=== PATIENT | female | born 1990 | race Caucasian/White ===

== ENCOUNTER 2018-01-12 09:54 | Inpatient (IN) ==
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
[2018-01-12] MEDS ORDERED: Isovue-370 500 ML INFUS..BTL IV ONE ×2 (11:03→11:30)
[2018-01-12] MEDS ORDERED: Azithromycin 500 MG in D5% in Water 250 ML IVPB ONE (11:07)
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
[2018-01-12] MEDS ORDERED: 0.9 % Sodium Chloride 1,000 ML IVC ONE ×2 (11:37→15:24)
[2018-01-12 11:45] LABS: Basophils % 0.1 %; Eosinophils % 0.1 %
[2018-01-12 11:47] LABS: Hematocrit 36.7 % (35.3-44.9); Hemoglobin 12.4 g/dL (11.5-15.4); Immature Granulocytes % 4.1 % (0-4); Lymphocytes # 2.1 K/mcL (0.6-4.6); Lymphocytes % 5.2 %; Mean Corpuscular HGB Conc 33.8 g/dL (31.6-35.5); Mean Corpuscular Volume 85.7 fL (83.0-100.0); Mean Platelet Volume 9.2 fL (9.4-12.4); Monocytes # 1.8 K/mcL (0.0-1.3); Monocytes % 4.4 %; Neutrophils # 34.9 K/mcL (1.6-8.9); Platelet Count 375 K/mcL (140-400); Red Blood Count 4.28 M/mcL (3.82-4.97); Red Cell Distribution Width 13.8 % (11.5-14.5); Segmented Neutrophils % 86.1 %
[2018-01-12 12:03] LABS: Toxic Granulation Present (Not Present)
[2018-01-12 12:18] LABS: Alanine Aminotransferase 5 Units/L (7-52); Albumin 2.8 g/dL (3.5-5.7); Albumin/Globulin Ratio 0.8 (1.1-2.2); Alkaline Phosphatase 140 Units/L (34-104); Aspartate Amino Transferase 9 Units/L (13-39); BUN/Creatinine Ratio 21 (6-26); Bilirubin,Direct 0.2 mg/dL (0.0-0.2); Bilirubin,Indirect 0.1 mg/dL (0.0-1.2); Bilirubin,Total 0.3 mg/dL (0.3-1.0); Blood Urea Nitrogen 14 mg/dL (6-20); Calcium 8.3 mg/dL (8.6-10.3); Carbon Dioxide 20 mEq/L (23-29); Chloride 104 mEq/L (98-107); Globulin 3.6 g/dL (2.4-3.5); Glucose 161 mg/dL (70-105); Lipase 5 Units/L (11-82); Osmolality,Calculated 286 (280-300); Potassium 2.8 mEq/L (3.5-5.1); Sodium 136 mEq/L (136-145); Total Protein 6.4 g/dL (6.4-8.9); eGFR For Non-African Americans > 60 (> 60)
[2018-01-12 12:19] LABS: Troponin I 0.36 ng/mL (< 0.04)
[2018-01-12] MEDS ORDERED: Piperacillin/Tazobactam 3.375 GM in 0.9 % Sodium Chloride Mini Bag 100 ML IVPB ONE (14:30)
[2018-01-12] MEDS ORDERED: Ipratropium/Albuterol Neb 3 ML IH PRN (15:54)
[2018-01-12] MEDS ORDERED: Potassium Chloride Elixir 20 MEQ/15 ML UDC PO ONE (15:58)
[2018-01-12] MEDS ORDERED: Naloxone 0.4 MG/ML INJ IVP PRN (16:04)
[2018-01-12] MEDS ORDERED: 0.9 % Sodium Chloride 1,000 ML IVC SCH (16:15)
[2018-01-12] MEDS: Ipratropium/Albuterol Neb 3 ML IH SCH ×3 (16:16→23:48)
[2018-01-12 16:21] LABS: Magnesium 2.2 mg/dL (1.6-2.6)
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
[2018-01-12 16:26] LABS: Appearance of Pleural Fl Hazy (Clear)
[2018-01-12 16:35] LABS: RBC,Pleural Fluid 0.002 M/mcL
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
[2018-01-12 17:07] LABS: Amylase,Pleural Fluid 12 Units/L (No Ref Range); Glucose,Pleural Fluid < 10 mg/dL (No Ref Range); LDH,Pleural Fluid 711 Units/L (No Ref Range); Total Protein,Pleural Fluid 4.1 g/dL (No Ref Range)
[2018-01-12] MEDS ORDERED: Aspirin Enteric Coated 325 MG Tablet PO ONE (17:34)
[2018-01-12] MEDS ORDERED: Ringers Solution, Lactated 1,000 ML IVC SCH (17:45)
[2018-01-12] MEDS: MethylPREDNISolone 40 MG/ML VIAL IVP SCH ×2 (17:45→23:32)
[2018-01-12] MEDS: *HR* HYDROcodone/Acet 5/325 mg TABLET PO PRN (17:55)
[2018-01-12] MEDS: Ringers Solution, Lactated 1,000 ML IVC SCH (18:58)
--- NOTE | 2018-01-12 19:24 | Event Note ---
Date of Encounter: 01/12/18 Time of Encounter: 18:30 Contacted by phone at 1830 of trop elevation to 5 from 0.3 on admit. Discussed with pt RN and pt asx. VS unchanged from previous. Stat ekg obtained. Hospitalist Admitter saw pt and confirmed no active cp, reviewed EKG. I too have reviewed EKG and she is in NSR with no ST elevation however new TWI in leads I, II and aVL. Consult to cardiology immediately placed and case discussed via phone in detail, including prior labs, ekg and presentation, recent trauma and CTA results. EKG imaging sent to cards for review. Recommend heparin gtt if ok with pulm given chest tube, if uds negative for cocaine start low dose bb tonight. Highly likely type II NSTEMI. Discussed with pulm and ok for heparing gtt with RN placing orders. UDS being sent currently and RN to notify night hospitalist of result so that low dose BB can be started if BP permits at that time. Change routine echo to stat and RN will contact echo to make them aware. Cont serial trops and ekgs. Despite new change in trop, she remains hemodynamically stable to stay on 2N at this time. Low threshold for higher level of care if change in clinical picture.
[2018-01-12] MEDS ORDERED: *HR* Heparin 5,000 UNIT/ML VIAL IVP ONE (19:26)
[2018-01-12] MEDS ORDERED: *HR* Heparin 5,000 UNIT/ML VIAL IVP PRN (19:26)
[2018-01-12 19:30] LABS: Bilirubin,Urine Negative (Negative); Blood,Urine Negative (Negative); Clarity,Urine Clear (Clear); Color,Urine Yellow (Yellow); Glucose,Urine (UA) Normal (Normal); Ketones,Urine Negative (Negative); Leukocyte Esterase,Urine Negative (Negative); Nitrite,Urine Negative (Negative); PH,Urine 6.5 pH Units (5.0-8.0); Protein,Urine Trace mg/dL (Neg-Trace); Specific Gravity,Urine 1.012 (1.010-1.025); Urobilinogen,Urine Normal (Normal)
[2018-01-12] MEDS ORDERED: Heparin 25,000 UNIT/500 ML D5W 25,000 UNIT/500 ML BAG IVC SCH (19:30)
[2018-01-12 19:33] LABS: Bacteria,Urine None Seen per hpf (None-Few); Hyaline Casts,Urine None Seen per lpf (None-Few); RBC,Urine 0-3 per hpf (0-3); Squamous Epithelial Cell,Urine Many per lpf (None-Few); WBC,Urine 0-3 per hpf (0-3)
[2018-01-12 19:40] LABS: Amphetamine Screen,Urine Negative ng/mL (Cutoff=1000); Barbiturate Screen,Urine Negative ng/mL (Cutoff=200); Benzodiazepines Screen,Urine Positive ng/mL (Cutoff=200); Cannabinoid Screen,Urine Negative ng/mL (Cutoff = 50); Cocaine Screen,Urine Negative ng/mL (Cutoff= 300); Opiate Screen,Urine Negative ng/mL (Cutoff=300); Phencyclidine Screen,Urine Negative ng/mL (Cutoff=25)
[2018-01-12 20:00] LABS: Hematocrit 31.3 % (35.3-44.9); Hemoglobin 10.6 g/dL (11.5-15.4); Mean Corpuscular HGB Conc 33.9 g/dL (31.6-35.5); Mean Corpuscular Hemoglobin 28.3 pg (28.0-33.3); Mean Corpuscular Volume 83.7 fL (83.0-100.0); Mean Platelet Volume 9.2 fL (9.4-12.4); Platelet Count 228 K/mcL (140-400); Red Blood Count 3.74 M/mcL (3.82-4.97); Red Cell Distribution Width 13.8 % (11.5-14.5)
[2018-01-12 20:04] LABS: Heparin anti-factor XA UFH 0.01 IU/mL (0.30-0.70); INR 1.1; Prothrombin Time 11.9 Seconds (9.4-12.1)
[2018-01-12] MEDS: Acetaminophen 325 MG TABLET PO PRN (20:45)
[2018-01-12] MEDS: *HR* OxyCODONE Immed Rel 5 MG TABLET PO PRN (21:44)
[2018-01-12 23:01] LABS: Adenovirus Not Detected (Not Detect); Bordetella Pertussis Not Detected (Not Detect); Chlamydophila pneumoniae Not Detected (Not Detect); Coronavirus 229E Not Detected (Not Detect); Coronavirus HKU1 Not Detected (Not Detect); Coronavirus NL63 Not Detected (Not Detect); Coronavirus OC43 Not Detected (Not Detect); Human Metapneumovirus Not Detected (Not Detect); Human Rhinovirus/Enterovirus Not Detected (Not Detect); Influenza A Subtype 2009 H1 Not Detected (Not Detect); Influenza A Untypeable Not Detected (Not Detect); Influenza B Not Detected (Not Detect); Mycoplasma pneumoniae Not Detected (Not Detect); Parainfluenza Virus 1 Not Detected (Not Detect); Parainfluenza Virus 2 Not Detected (Not Detect); Parainfluenza Virus 3 Not Detected (Not Detect); Parainfluenza Virus 4 Not Detected (Not Detect); Respiratory Syncytial Virus Not Detected (Not Detect)
[2018-01-12 23:26] LABS: Potassium 3.3 mEq/L (3.5-5.1)
[2018-01-12 23:30] LABS: Troponin I 0.11 ng/mL (< 0.04)
[2018-01-12] MEDS: Piperacillin/Tazobactam 3.375 GM in 0.9 % Sodium Chloride Mini Bag 100 ML IVPB SCH (23:33)
--- NOTE | 2018-01-13 00:27 | Event Note ---
Date of Encounter: 01/13/18 Time of Encounter: 00:25 I was asked by Dr. Reyez to see patient and assess briefly. Patient doing OK and denies any chest pain other than chest tube site. She has underlying cough and some wheezing. Overall, she states she feels much better since chest tube insertion. No sign of bleeding at this time. Last troponin is 0.11. Vital signs remain stable presently.
[2018-01-13] MEDS: Ringers Solution, Lactated 1,000 ML IVC SCH ×2 (03:10→11:40)
[2018-01-13] MEDS: *HR* HYDROcodone/Acet 5/325 mg TABLET PO PRN ×3 (03:22→21:34)
[2018-01-13 03:23] LABS: Hematocrit 28.8 % (35.3-44.9); Hemoglobin 9.8 g/dL (11.5-15.4); Mean Corpuscular Hemoglobin 29.1 pg (28.0-33.3); Mean Corpuscular Volume 85.5 fL (83.0-100.0); Mean Platelet Volume 9.5 fL (9.4-12.4); Platelet Count 301 K/mcL (140-400); Red Blood Count 3.37 M/mcL (3.82-4.97); Red Cell Distribution Width 13.9 % (11.5-14.5)
[2018-01-13 03:43] LABS: Alanine Aminotransferase 7 Units/L (7-52); Albumin 2.5 g/dL (3.5-5.7); Albumin/Globulin Ratio 0.8 (1.1-2.2); Alkaline Phosphatase 130 Units/L (34-104); Aspartate Amino Transferase 10 Units/L (13-39); BUN/Creatinine Ratio 19 (6-26); Bilirubin,Total 0.2 mg/dL (0.3-1.0); Blood Urea Nitrogen 12 mg/dL (6-20); Carbon Dioxide 20 mEq/L (23-29); Chloride 109 mEq/L (98-107); Chol/HDL Ratio 8.2 (0-4.9); Cholesterol 82 mg/dL (< 200); Globulin 3.2 g/dL (2.4-3.5); Glucose 243 mg/dL (70-105); HDL Cholesterol 10 mg/dL (40-59); LDL Cholesterol,Calculated 51 mg/dL (0-99); Magnesium 2.1 mg/dL (1.6-2.6); Osmolality,Calculated 294 (280-300); Phosphorous 3.2 mg/dL (2.7-4.5); Potassium 3.2 mEq/L (3.5-5.1); Sodium 138 mEq/L (136-145); Total Protein 5.7 g/dL (6.4-8.9); Triglycerides 104 mg/dL (< 150); eGFR For Non-African Americans > 60 (> 60)
[2018-01-13 03:58] LABS: Lymphocytes # 1.3 K/mcL (0.6-4.6); Neutrophils # 20.2 K/mcL (1.6-8.9); Platelet Estimate Normal (Normal)
[2018-01-13] MEDS: Ipratropium/Albuterol Neb 3 ML IH SCH ×6 (04:34→23:54)
[2018-01-13] MEDS: *HR* OxyCODONE Immed Rel 5 MG TABLET PO PRN ×2 (06:23→15:23)
--- NOTE | 2018-01-13 06:43 | Pulmonology Progress Note ---
Date of Encounter: 01/13/18 Time of Encounter: 06:43 Assessment and Plan (1) Empyema Current Visit: Yes Status: Acute Patient has laboratory features consistent with empyema. Has to is drained about 1300 mL of purulent material overnight. Since shift change last night about 120 mL's, out I flushed the chest tube again today with normal saline. Based upon radiographs the size of the effusion has decreased but not completely resolved would keep the chest tube to wall suction today Pneumothorax seen today on chest imaging is consistent with pneumothorax ex vacuo and is related to evacuation of the pleural space pending lung reexpansion unless evidence of trapped lung physiology which may require surgical decortication I suspect she would benefit from intrapleural TPA administration although not an absolute contraindication with systemic anticoagulation clearly the risk of bleeding would be much less once heparin was turned off if possible I will delay administration of this for this reason today Continue broad-spectrum antimicrobials pending microbiological culture sensitivity and specificities including anaerobic coverage (2) NSTEMI (non-ST elevated myocardial infarction) Current Visit: Yes Status: Acute I suspect this is demand ischemia I am concerned about the possibility of infectious process however either endocarditis or infection of the pericardium given proximity of empyema echocardiogram has been obtained and final results are pending cardiology's been consulted and I will follow-up with him about the need for heparin or if there is any evidence of infectious process. (3) Tobacco abuse Current Visit: Yes Status: Acute Tobacco cessation counseling given Continue bronchodilators I am ambivalent about the use of systemic corticosteroids in this patient (4) Severe sepsis Current Visit: Yes Status: Acute Unfortunately it appears that blood cultures were not obtained in the emergency department from what I can gather I have asked the nursing staff to obtain these today clearly he she is already received antimicrobials which will decrease the yield however she has a persistent bacteremia that would still be helpful Sputum and urine culture are pending at this time the Gram stain from the pleural fluid without evidence of bacteria Tachycardia has resolved lactate is normalized She is taking by mouth diet now and I suspect that the maintenance fluid can be discontinued today Pulmonary will continue to follow Subjective Principal diagnosis: Empyema Interval history: Dulce Maria says that she is feeling better today chest discomfort has improved markedly and she is able to take a deeper breath now without pain. She has remained afebrile overnight and tachycardia has resolved blood pressure is been stable troponin noted to go from one to 5 and she had an echocardiogram performed earlier today. She was started on heparin for concern of an STEMI Objective PUL Vital signs: Last Vital Signs Temp 98 F 01/13/18 04:27 Pulse 83 01/13/18 04:27 Resp 20 01/13/18 04:34 BP 105/61 01/13/18 04:27 Pulse Ox 94 01/13/18 04:34 General appearance: no acute distress Eyes: nonicteric ENT: other (Poor dentition) Effort: mildly labored Auscultation: right: diminished breath sounds, bilateral: wheezes (Faint inspiratory wheezes), rhonchi Cardiovascular: regular rate and rhythm Gastrointestinal: normoactive bowel sounds Integumentary: normal Extremities: no cyanosis, no edema, no clubbing normal mental status, non-focal exam, pupils equal and round mood appropriate Results - Laboratory Findings CBC and BMP: 01/13/18 03:10 01/13/18 03:10 PT/INR, D-dimer PT 11.9 Seconds (9.4-12.1) 01/12/18 19:43 Abnormal lab findings: Abnormal lab results WBC 21.5 K/mcL (4.3-11.1) H 01/13/18 03:10 RBC 3.37 M/mcL (3.82-4.97) L 01/13/18 03:10 Hgb 9.8 g/dL (11.5-15.4) L 01/13/18 03:10 Hct 28.8 % (35.3-44.9) L 01/13/18 03:10 Immature Gran % 4.1 % (0-4) H 01/12/18 11:33 Neutrophils # 20.2 K/mcL (1.6-8.9) H 01/13/18 03:10 Monocytes # 1.8 K/mcL (0.0-1.3) H 01/12/18 11:33 Toxic Granulation Present (Not Present) A 01/12/18 11:33 Heparin Anti-Xa, Unfract 0.05 IU/mL (0.30-0.70) L 01/13/18 03:10 Potassium 3.2 mEq/L (3.5-5.1) L 01/13/18 03:10 Chloride 109 mEq/L (98-107) H 01/13/18 03:10 Carbon Dioxide 20 mEq/L (23-29) L 01/13/18 03:10 Glucose 243 mg/dL (70-105) H 01/13/18 03:10 Calcium 8.0 mg/dL (8.6-10.3) L 01/13/18 03:10 Total Bilirubin 0.2 mg/dL (0.3-1.0) L 01/13/18 03:10 AST 10 Units/L (13-39) L 01/13/18 03:10 Alkaline Phosphatase 130 Units/L (34-104) H 01/13/18 03:10 B-Natriuretic Peptide 462 pg/mL (Less than 100) H 01/12/18 16:09 Serum Total Protein 5.7 g/dL (6.4-8.9) L 01/13/18 03:10 Albumin 2.5 g/dL (3.5-5.7) L 01/13/18 03:10 Albumin/Globulin Ratio 0.8 (1.1-2.2) L 01/13/18 03:10 HDL Cholesterol 10 mg/dL (40-59) L 01/13/18 03:10 Cholesterol/HDL Ratio 8.2 (0-4.9) H 01/13/18 03:10 Lipase 5 Units/L (11-82) L 01/12/18 11:33 Ur Squamous Epith Cells Many per lpf (None-Few) H 01/12/18 19:10 Pleural Appearance Hazy (Clear) A 01/12/18 15:16 Pleural Tot Nuc Cell 8698 TNC/mcL (0-1000) H 01/12/18 15:16 U Benzodiazepines Scrn Positive ng/mL (Neajco=502) H 01/12/18 19:10 - Diagnostic Findings Chest x-ray: report reviewed, image reviewed - Clinical Findings Intake & Output: Intake & Output 01/12/18 01/12/18 01/13/18 15:59 23:59 07:59 Intake Total 1320 / 1320 1457 / 1457 Output Total 1570 / 1570 500 / 500 Balance -250 / -250 957 / 957 Weight 53.7 kg 54.4 kg Consult Discharge Plan - Plan Referrals: NONE,PCP [Primary Care Provider] -
--- NOTE | 2018-01-13 07:55 | Internal Med Progress Note ---
Hospitalist Progress Note - Encounter Date of Encounter: 01/13/18 Time of Encounter: 09:15 - Subjective Interval History: awake, family at bed side, appears much improved. resting on room air and denies sob. cont weak deep cough, can't bring up sputum. deneis any chest pain, palpitations, presyncope. pain in right side of chest with chest tube in place but overall pain in right chest wall improved. - Exam Vitals: Temp Pulse Resp BP Pulse Ox 97.8 F 78 18 105/65 96 01/13/18 07:18 01/13/18 07:18 01/13/18 07:18 01/13/18 07:18 01/13/18 07:18 Exam: General: awake, alert, appears stated age HEENT:EOM intact, pupils equal, round, no conjunctival pallor, moist mucus membranes, poor dentition Neck: supple, trachea midline Cardiovascular:regular rate and rhythm, normal S1 & S2, no rubs, murmurs or gallops appreciated. No JVD. radial pulses 2+ and regular, no lower extremity edema Lungs:no resp distress, normal work of breathing on room air, no wheezing + rhonchi, diminished right breath sounds and worst in base Abdomen:Soft, non-tender, non-distended, + bowel sounds Neurological: AAOx3 Skin:Normal color, no rash, no pallor, no jaundice, - Assessment and Plan (1) Severe sepsis Current Visit: Yes Assessment and Plan: as evidenced by HR 116, RR 26, BP drop from 132/65 to 110/67 , WBC 40, Lactic acid 3 and suspected pneumonia -s/p 2L boluses in ED per sepsis procotol, trended lactate and down to 1.8 now -CXR new moderate to large plueral and parenchymal opacity lower 2/3 right lung -CTA Chest: 1.There is a large multiloculated right pleural effusion which results in significant lung atelectasis and mediastinal/cardiac shift to the left. This could represent posttraumatic loculated effusion. There is no internal gas foci though empyema cannot be excluded. 2.Extensive right lung consolidation with right lower lobe bronchial opacification and hypodense changes which suggest possible aspiration. There are multifocal basal circumscribed fluid collections which could represent developing pulmonary abscess. 3. Trace simple left pleural effusion with mild patchy perihilar consolidation. -CT A/P without acute findings / signs of infection, ROS neg for gi symptoms -Left otitis media on exam -check UA -no skin wounds that appear infected -cont ivfs -bl cxs pending -thoracentesis fluid studies pending: pleural fluid gram stain many wbcs, culture pending -vanc + zosyn -01/13 - lactate--down to 2, -leukocytosis down to 20s, afebrile, normal HR, BP low 100s/50-60s (2) Acute respiratory failure with hypoxia Current Visit: Yes Status: Acute Assessment and Plan: 2/2 large right pleural effusions and Pneumonia, suspicious for aspiration pna, Empyema, organism uk at this time -supplemental O2, wean as able -Emergent IR thoracentesis and chest tube placement given CT chest findings with mediastinal shift in ED -CTA did not suggest traumatic effusion / Chest tube drainage is NOT bloody -treatment of pneumonia/empyema as below -pulm following (3) Pleural effusion Current Visit: Yes Status: Acute Assessment and Plan: treatment as above -fluid studies as above -Chest tube management as per pulm (4) Pneumonia Current Visit: Yes Status: Acute Assessment and Plan: right loculated pleural effusions and Pneumonia, Empyema, organism uk at this time -fluid studies pending -vanc + zosyn to cover aspiration -standing and prn nebs -IV steroids -sputum cx pending - legionella, strep ag pending -viral resp panel neg -pulm is following -01/13 chest tube with 1300 cc purulent fluid overnight, cont chest tube as per pulm, CXR today with pneumothorax c/w pneumothorax ex vacuo , will cont to monitor for trapped lung and any need for surgical intervention -Chest tube would benefit from tpa administration but currently heparin gtt running (awaiting cards recs re ability to dc hep gtt) (5) Elevated troponin Current Visit: Yes Status: Acute Assessment and Plan: Suspect Type II OH in setting of Severe Sepsis, Heart score 3, asx, working to rule out endocarditis or pericardial infection given empyema -trop 0.36 then peak at 5.5 - sinus tachy in ED and EKG without acute ischemic changes , 01/12 repeat EKG with new twi I, II avl -cards consulted-hep gtt started (trop improvement prior to achieving therapeutic range) -cont asa, lipid panel with low HDL otherwise wnl -tele -tsh wnl, a1c pending -bnp 462 -stat echo: LVEF 65%. Normal left ventricular diastolic function. Normal right ventricular structure and function. Mildly dilated left atrium. No significant valvular abnormality No evidence of pulmonary hypertension. -UDS neg- as per cards recs if neg cocaine start low dose BB but BPs have not yet permitted initiation -fu cards recs re further work up, treatment, hep gtt continuation (6) History of recent trauma Current Visit: Yes Status: Acute Assessment and Plan: CT chest and A/P - no pneumothorax, no evidence of hemorrhage, liver laceration or other signs of traumatic injury (7) Left acute otitis media Current Visit: Yes Status: Acute Assessment and Plan: abx as above (8) Hypoalbuminemia Current Visit: Yes Status: Acute Assessment and Plan: nutrition consulted (9) Hypokalemia Current Visit: Yes Status: Acute Assessment and Plan: K+ 2.8 in eD -cont oral replete -mag at goal -tele -cont to monitor lytes (10) Hepatitis C virus Current Visit: Yes Status: Chronic Assessment and Plan: on chart review + Hep c testing in past HIV neg in past (11) Depression Current Visit: No Status: Chronic Assessment and Plan: stable previously on medication, not on any now DVT Prophylaxis: hep gtt - Time Spent with Patient Total time spent is greater than 50% in coordination of care (as documented) at patient's floor/unit and/or counseling patient: 25 - 35 minutes Plan of Care Discussed with: patient Internal Medicine: Result - Labs CBC & Chem 7: 01/13/18 03:10 01/13/18 03:10 Labs: Short CBC 01/12/18 01/13/18 Range/Units 19:43 03:10 WBC 32.6 H* 21.5 H (4.3-11.1) K/mcL Hgb 10.6 L D 9.8 L (11.5-15.4) g/dL Hct 31.3 L 28.8 L (35.3-44.9) % Plt Count 228 301 (140-400) K/mcL Neutrophils # 20.2 H (1.6-8.9) K/mcL BMP 01/12/18 01/13/18 22:46 03:10 Sodium 138 Potassium 3.3 L 3.2 L Chloride 109 H Carbon Dioxide 20 L BUN 12 Creatinine 0.64 Glucose 243 H Calcium 8.0 L Cardiac Enzymes 01/12/18 01/12/18 01/13/18 Range/Units 17:33 22:46 03:10 Troponin I 5.50 H* 0.11 H* 0.03 (< 0.04) ng/mL Liver Function 01/13/18 Range/Units 03:10 Total Bilirubin 0.2 L (0.3-1.0) mg/dL AST 10 L (13-39) Units/L ALT 7 (7-52) Units/L Alkaline Phosphatase 130 H (34-104) Units/L Albumin 2.5 L (3.5-5.7) g/dL Urine 01/12/18 Range/Units 19:10 Urine Color Yellow (Yellow) Urine Clarity Clear (Clear) Urine pH 6.5 (5.0-8.0) pH Units Ur Specific Jelm 1.012 (1.010-1.025) Urine Protein Trace (Neg-Trace) mg/dL Urine Glucose (UA) Normal (Normal) mg/dL - ABG Interpretation ABG results: PT/INR, D-dimer PT 11.9 Seconds (9.4-12.1) 01/12/18 19:43 Consult Discharge Plan - Plan Referrals: NONE,PCP [Primary Care Provider] - (4) Pneumonia Qualifiers: Pneumonia type: due to unspecified organism Laterality: right Lung location : lower lobe of lung Qualified Code(s): J18.1 - Lobar pneumonia, unspecified organism (10) Hepatitis C virus Qualifiers: Viral hepatitis chronicity: unspecified Hepatic coma status: without hepatic coma Qualified Code(s): B19.20 - Unspecified viral hepatitis C without hepatic coma (11) Depression Qualifiers: Depression Type: unspecified Qualified Code(s): F32.9 - Major depressive disorder, single episode, unspecified
[2018-01-13] MEDS ORDERED: Potassium Chloride Elixir 20 MEQ/15 ML UDC PO ONE (07:59)
[2018-01-13] MEDS ORDERED: Aspirin Enteric Coated 81 MG Tablet PO SCH (09:00)
[2018-01-13] MEDS: MethylPREDNISolone 40 MG/ML VIAL IVP SCH ×2 (09:54→17:01)
[2018-01-13] MEDS: Piperacillin/Tazobactam 3.375 GM in 0.9 % Sodium Chloride Mini Bag 100 ML IVPB SCH ×2 (09:54→17:01)
[2018-01-13] MEDS: *HR* Heparin 5,000 UNIT/ML VIAL IVP PRN ×2 (11:39→17:04)
[2018-01-13] MEDS ORDERED: Ringers Solution, Lactated 1,000 ML IVC SCH (12:30)
--- NOTE | 2018-01-13 17:43 | Cardiology Consult Note ---
Date of Encounter: 01/13/18 Time of Encounter: 13:00 Assessment and Plan (1) Elevated troponin Current Visit: Yes Status: Acute Patient symptoms are more typical for empyema much less cardiac ischemia especially given her young age and gender. TnI trended as follows: 0.36 -> 5.5 -> 0.11 -> 0.03. I suspect the one blood sample with Troponin of 5.5 was an outlier. Echocardiogram shows normal ejection fraction with no wall motion abnormality. Urine toxicology was negative for cocaine. Please discontinue intravenous heparin. Continue antibiotics and follow blood cultures. Discussion w patient/family: The assessment and plan as outlined above was discussed with the patient and/or family members who expressed understanding and agreement. All questions were answered. Thank you for involving us in the care of your patient. Please call with any questions. History of Present Illness Consult date: 01/13/18 Chief complaint: Shortness of breath History of present illness: Ms. Darden is a 27 year old female with past medical history of IV drug abuse, tobacco abuse who presented with severe chest pain and shortness of breath I was found to have large empyema which was drained via chest tube yesterday night. However, she was found to have elevated troponin and so cardiology was consulted. Since receiving chest tube, patient reports that she feels much better. She denies chest pain at this time. Exercise tolerance is excellent prior current illness. No history suggestive of congenital heart disease or episode of infective endocarditis. No family history of premature coronary artery disease. Past Med Surg Social Fam HX - Past Medical History Medical history: no medical history Psychiatric history: anxiety, depression - Past Surgical History Surgical History: no surgical history, non-contributory Additional surgical history: tubes in ears - Social History Smoking Status: Current every day smoker Smokeless Tobacco Status: No Alcohol use: none Drug use: other - Family History Mother Hx Family Cardiac Disorders: Yes Hx Family Cancer: Yes Hx Family Endocrine Disorder: Yes Medications and Allergies Ibuprofen [Motrin Ib] 800 mg PO Q4-6H PRN 01/12/18 [History] 3 Allergy/AdvReac Type Severity Reaction Status Date / Time No Known Allergies Allergy Verified 01/12/18 11:58 All Systems Review: The remainder of the systems were reviewed and are negative - Constitutional Constitutional: no anorexia - EENT Eyes: no blurred vision Nose, mouth and throat: no bleeding gums - Cardiovascular Cardiovascular: as per HPI - Respiratory Respiratory: cough, dyspnea - Gastrointestinal Gastrointestinal: no abdominal pain - Genitourinary Genitourinary: no hematuria - Musculoskeletal Musculoskeletal: no abnormal gait - Integumentary Integumentary: no erythema - Neurological Neurological: no abnormal speech - Psychiatric Psychiatric: no anxiety Physical Examination Vital Signs, Last 4 Hours Temp Pulse Resp BP Pulse Ox 01/13/18 16:16 16 97 01/13/18 15:15 98.3 F 84 19 122/68 96 General: Conversant, No Apparent Distress HEENT: Atraumatic Neck: No JVD, Normal carotid pulses Cardiac: Reg Rate and Rhythm, Normal S1 and S2, No Murmur Lungs: Other (Diminished breath sounds with coarse crackles.) Neuro: Alert and responsive, No focal deficits noted Abdomen: Soft, Non-Tender Musculoskeletal: Other (Right Chest tube in situ draining purulent fluid.) Extremities: No Clubbing, No Edema Results 01/13/18 03:10 01/13/18 16:15 Lab Results 01/12/18 01/12/18 01/12/18 17:33 19:43 19:43 WBC 32.6 H* Hgb 10.6 L D Hct 31.3 L Plt Count 228 INR 1.1 Sodium Potassium Chloride Carbon Dioxide BUN Creatinine Glucose Calcium Magnesium Total Bilirubin AST ALT Alkaline Phosphatase Troponin I 5.50 H* TSH 01/12/18 01/13/18 01/13/18 22:46 03:10 03:10 WBC 21.5 H Hgb 9.8 L Hct 28.8 L Plt Count 301 INR Sodium 138 Potassium 3.3 L 3.2 L Chloride 109 H Carbon Dioxide 20 L BUN 12 Creatinine 0.64 Glucose 243 H Calcium 8.0 L Magnesium 2.1 Total Bilirubin 0.2 L AST 10 L ALT 7 Alkaline Phosphatase 130 H Troponin I 0.11 H* TSH 01/13/18 01/13/18 01/13/18 03:10 03:10 16:15 WBC Hgb Hct Plt Count INR Sodium Potassium 3.0 L Chloride Carbon Dioxide BUN Creatinine Glucose Calcium Magnesium Total Bilirubin AST ALT Alkaline Phosphatase Troponin I 0.03 TSH 0.695 Consult Discharge Plan - Plan Referrals: NONE,PCP [Primary Care Provider] -
[2018-01-13] MEDS: *HR* Heparin 5,000 UNIT/ML VIAL SQ SCH (21:09)
[2018-01-14] MEDS: Piperacillin/Tazobactam 3.375 GM in 0.9 % Sodium Chloride Mini Bag 100 ML IVPB SCH ×3 (00:13→17:39)
[2018-01-14] MEDS: MethylPREDNISolone 40 MG/ML VIAL IVP SCH ×3 (00:13→17:36)
[2018-01-14] MEDS: Melatonin 3 MG TABLET PO PRN (00:15)
[2018-01-14] MEDS: *HR* OxyCODONE Immed Rel 5 MG TABLET PO PRN ×2 (03:23→15:33)
[2018-01-14] MEDS: Ipratropium/Albuterol Neb 3 ML IH SCH ×6 (03:39→23:43)
[2018-01-14 04:02] LABS: Hematocrit 28.8 % (35.3-44.9); Hemoglobin 9.6 g/dL (11.5-15.4); Lymphocytes # 1.2 K/mcL (0.6-4.6); Mean Corpuscular HGB Conc 33.3 g/dL (31.6-35.5); Mean Corpuscular Hemoglobin 28.1 pg (28.0-33.3); Mean Corpuscular Volume 84.2 fL (83.0-100.0); Platelet Count 362 K/mcL (140-400); Red Blood Count 3.42 M/mcL (3.82-4.97); Red Cell Distribution Width 14.2 % (11.5-14.5)
[2018-01-14 04:19] LABS: BUN/Creatinine Ratio 20 (6-26); Blood Urea Nitrogen 13 mg/dL (6-20); Calcium 8.5 mg/dL (8.6-10.3); Carbon Dioxide 20 mEq/L (23-29); Chloride 109 mEq/L (98-107); Glucose 115 mg/dL (70-105); Magnesium 1.8 mg/dL (1.6-2.6); Osmolality,Calculated 293 (280-300); Potassium 3.6 mEq/L (3.5-5.1); Sodium 141 mEq/L (136-145); eGFR For Non-African Americans > 60 (> 60)
[2018-01-14 04:28] LABS: Monocytes # 0.6 K/mcL (0.0-1.3); Neutrophils # 27.7 K/mcL (1.6-8.9)
[2018-01-14 04:29] LABS: Platelet Estimate Normal (Normal)
[2018-01-14] MEDS: *HR* Heparin 5,000 UNIT/ML VIAL SQ SCH ×3 (05:47→22:23)
--- NOTE | 2018-01-14 06:36 | Pulmonology Progress Note ---
Date of Encounter: 01/14/18 Time of Encounter: 06:36 Assessment and Plan (1) Empyema Current Visit: Yes Status: Acute Patient has laboratory features consistent with empyema. In general terms it appears that the majority of the pleural space has been drained of purulent material there is a small residual pleural effusion that left and would keep chest tube in place and to suction over the next 24 hours I do not think that based upon the CT scan that intrapleural TPA will be necessary (2) Multifocal pneumonia Current Visit: Yes Status: Acute CT scan today is notable for worsening multifocal pneumonia especially on the left side. It is unclear to me why she she would have radiographic progression of infiltrate unless current antimicrobial therapy is insufficient one possibility is that her vancomycin level may have been under doses her trough was less than 8. This was re-dose per pharmacy and goal trough for her should be closer to 15-20 based upon her renal function I will defer to pharmacy for further dosing. I have added azithromycin for some atypical coverage although not suggested by her respiratory infection panel are negative Legionella urine antigen. Additionally will send patient for induced sputum today 3 would consider bronchoscopy over patient has eaten late this morning which would make this difficult to achieve today. Please keep patient nothing by mouth at midnight and tomorrow if worsening white count or febrile overnight she would need to proceed with bronchoscopy this can be determined by the twist tester on service tomorrow. Continue Zosyn as well (3) NSTEMI (non-ST elevated myocardial infarction) Current Visit: Yes Status: Acute Cardiology has evaluated the patient and felt this is demand ischemia heparin has been turned off (4) Tobacco abuse Current Visit: Yes Status: Acute Tobacco cessation counseling given Start nicotine patch at 7 mg is having intense cravings (has become sick at higher doses). Subjective Principal diagnosis: Empyema Interval history: Over last 24 hours patient has remained afebrile. She says that she is continuing to feel more comfortable. She does report an creased cough although generally this is nonproductive and she denies any hemoptysis. Chest tube with minimal output does continue to drain some purulent material. She has not required supplemental oxygen Objective PUL Vital signs: Last Vital Signs Temp 98.2 F 01/14/18 03:08 Pulse 88 01/14/18 03:08 Resp 18 01/14/18 03:08 BP 114/79 01/14/18 03:08 Pulse Ox 94 01/14/18 03:08 General appearance: no acute distress Eyes: nonicteric ENT: oropharynx moist Neck: supple Auscultation: bilateral: rhonchi Cardiovascular: regular rate and rhythm Gastrointestinal: normoactive bowel sounds, soft, non-tender Integumentary: normal Extremities: no cyanosis, no edema, no clubbing Musculoskeletal: no deformities normal mental status, non-focal exam mood appropriate Results - Laboratory Findings CBC and BMP: 01/14/18 03:50 01/14/18 03:50 PT/INR, D-dimer PT 11.9 Seconds (9.4-12.1) 01/12/18 19:43 Abnormal lab findings: Abnormal lab results WBC 30.1 K/mcL (4.3-11.1) H* 01/14/18 03:50 RBC 3.42 M/mcL (3.82-4.97) L 01/14/18 03:50 Hgb 9.6 g/dL (11.5-15.4) L 01/14/18 03:50 Hct 28.8 % (35.3-44.9) L 01/14/18 03:50 Immature Gran % 4.1 % (0-4) H 01/12/18 11:33 Band Neutrophils % 10.0 % (0-4) H 01/14/18 03:50 Metamyelocytes % 2.0 % (0) H 01/14/18 03:50 Neutrophils # 27.7 K/mcL (1.6-8.9) H 01/14/18 03:50 Toxic Granulation Present (Not Present) A 01/12/18 11:33 Heparin Anti-Xa, Unfract 0.15 IU/mL (0.30-0.70) L 01/13/18 16:15 Chloride 109 mEq/L (98-107) H 01/14/18 03:50 Carbon Dioxide 20 mEq/L (23-29) L 01/14/18 03:50 Glucose 115 mg/dL (70-105) H 01/14/18 03:50 Calcium 8.5 mg/dL (8.6-10.3) L 01/14/18 03:50 Total Bilirubin 0.2 mg/dL (0.3-1.0) L 01/13/18 03:10 AST 10 Units/L (13-39) L 01/13/18 03:10 Alkaline Phosphatase 130 Units/L (34-104) H 01/13/18 03:10 B-Natriuretic Peptide 462 pg/mL (Less than 100) H 01/12/18 16:09 Serum Total Protein 5.7 g/dL (6.4-8.9) L 01/13/18 03:10 Albumin 2.5 g/dL (3.5-5.7) L 01/13/18 03:10 Albumin/Globulin Ratio 0.8 (1.1-2.2) L 01/13/18 03:10 HDL Cholesterol 10 mg/dL (40-59) L 01/13/18 03:10 Cholesterol/HDL Ratio 8.2 (0-4.9) H 01/13/18 03:10 Lipase 5 Units/L (11-82) L 01/12/18 11:33 Ur Squamous Epith Cells Many per lpf (None-Few) H 01/12/18 19:10 Pleural Appearance Hazy (Clear) A 01/12/18 15:16 Pleural Tot Nuc Cell 8698 TNC/mcL (0-1000) H 01/12/18 15:16 U Benzodiazepines Scrn Positive ng/mL (Akenpb=699) H 01/12/18 19:10 - Microbiology Findings Microbiology Findings: Microbiology, Last 48 Hours 01/13/18 21:35 Sputum Culture - Preliminary Sputum 01/12/18 19:01 Legionella Antigen - Final Urine,Clean Catch Streptococcus pneumoniae Antigen (M - Final 01/13/18 07:07 Blood Culture - Preliminary Peripheral Venipuncture Culture is incubating and being continuously monitored for growth. Final report to follow. 01/13/18 07:13 Blood Culture - Preliminary Peripheral Venipuncture Culture is incubating and being continuously monitored for growth. Final report to follow. - Diagnostic Findings Chest x-ray: report reviewed, image reviewed CT scan - chest: report reviewed, image reviewed - Clinical Findings Intake & Output: Intake & Output 01/13/18 01/13/18 01/14/18 15:59 23:59 07:59 Intake Total 1519 / 1519 748 / 748 500 / 500 Output Total 990 / 990 990 / 990 0 / 0 Balance 529 / 529 -242 / -242 500 / 500 Weight 54.7 kg Consult Discharge Plan - Plan Referrals: NONE,PCP [Primary Care Provider] -
[2018-01-14] MEDS ORDERED: Alteplase (Cathflo) 10 MG in 0.9 % Sodium Chloride 30 ML IX ONE (07:28)
[2018-01-14] MEDS ORDERED: Magnesium Oxide 400 MG TABLET PO ONE (07:42)
--- NOTE | 2018-01-14 07:46 | Internal Med Progress Note ---
Hospitalist Progress Note - Encounter Date of Encounter: 01/14/18 Time of Encounter: 09:40 - Subjective Interval History: awake, fatigued but overall somewhat improved. sob is improving. continued coughing, difficulty bring up sputum. denies fevers, chills, nausea, emesis diarrhea - Exam Vitals: Temp Pulse Resp BP Pulse Ox 98.7 F 58 16 122/87 96 01/14/18 07:12 01/14/18 07:12 01/14/18 07:12 01/14/18 07:12 01/14/18 07:12 Exam: General: awake, alert, appears stated age, fatigued appearing HEENT: pupils equal, round, no conjunctiva pallor, moist mucus membranes, poor dentition Neck: supple, trachea midline Cardiovascular:tachy rate 110s on tele and reg rhythm, normal S1 & S2, no rubs, murmurs or gallops appreciated. radial pulses 2+ and regular, no lower extremity edema Lungs:no resp distress, normal work of breathing on room air, + wheezing + rhonchi, diminished right breath sounds and worst in base Abdomen:Soft, non-tender, non-distended, + bowel sounds Neurological: AAOx3 Skin:Normal color, no rash, no pallo - Assessment and Plan (1) Severe sepsis Current Visit: Yes Assessment and Plan: as evidenced by HR 116, RR 26, BP drop from 132/65 to 110/67 , WBC 40, Lactic acid 3 and suspected pneumonia -s/p 2L boluses in ED per sepsis procotol, trended lactate and down to 1.8 now -CXR new moderate to large plueral and parenchymal opacity lower 2/3 right lung -CTA Chest: 1.There is a large multiloculated right pleural effusion which results in significant lung atelectasis and mediastinal/cardiac shift to the left. This could represent posttraumatic loculated effusion. There is no internal gas foci though empyema cannot be excluded. 2.Extensive right lung consolidation with right lower lobe bronchial opacification and hypodense changes which suggest possible aspiration. There are multifocal basal circumscribed fluid collections which could represent developing pulmonary abscess. 3. Trace simple left pleural effusion with mild patchy perihilar consolidation. -CT A/P without acute findings / signs of infection, ROS neg for gi symptoms -Left otitis media on exam -check UA -no skin wounds that appear infected -cont ivfs at lower rate and dc when increased intake -bl cxs ngtd -sputum cx gpc, gnr and yeast , legionella and strp ag neg -thoracentesis fluid studies pending: pleural fluid gram stain many wbcs, culture pending -vanc + zosyn -01/13 - lactate--down to 2, -leukocytosis down to 20s, afebrile, normal HR, BP low 100s/50-60s (2) Acute respiratory failure with hypoxia Current Visit: Yes Status: Acute Assessment and Plan: 2/2 large right pleural effusions and Pneumonia, suspicious for aspiration pna, Empyema, organism uk at this time -supplemental O2, wean as able -Emergent IR thoracentesis and chest tube placement given CT chest findings with mediastinal shift in ED -CTA did not suggest traumatic effusion / Chest tube drainage is NOT bloody -treatment of pneumonia/empyema as below -pulm following (3) Pleural effusion Current Visit: Yes Status: Acute Assessment and Plan: treatment as above -fluid studies as above -Chest tube management as per pulm (4) Pneumonia Current Visit: Yes Status: Acute Assessment and Plan: right loculated pleural effusions and Pneumonia, Empyema, organism uk at this time -fluid studies pending -vanc + zosyn to cover aspiration -standing and prn nebs -IV steroids -sputum cx gpc, gnr and yeast - legionella, strep ag neg -viral resp panel neg -pulm is following -01/13 chest tube with 1300 cc purulent fluid overnight, cont chest tube as per pulm, CXR today with pneumothorax c/w pneumothorax ex vacuo , will cont to monitor for trapped lung and any need for surgical intervention -01/14 worsening multi focal pna on cxr, prgression to let chest--CT chest pending, azithro added, induced sputum today x3, pulm considering bronchoscopy possibly tomorrow, no intrapleural tpa needed today, maintain chest tube to suction (5) Elevated troponin Current Visit: Yes Status: Acute Assessment and Plan: Suspect Type II HI in setting of Severe Sepsis, Heart score 3, asx, working to rule out endocarditis or pericardial infection given empyema -trop 0.36 then peak at 5.5 - sinus tachy in ED and EKG without acute ischemic changes , 01/12 repeat EKG with new twi I, II avl -cards consulted-hep gtt started (trop improvement prior to achieving therapeutic range) -cont asa, lipid panel with low HDL otherwise wnl -tele -tsh wnl, a1c pending -bnp 462 -stat echo: LVEF 65%. Normal left ventricular diastolic function. Normal right ventricular structure and function. Mildly dilated left atrium. No significant valvular abnormality No evidence of pulmonary hypertension. -UDS neg- as per cards recs if neg cocaine start low dose BB but BPs have not yet permitted initiation -seen in eval by cards 01/13, believe trop of 5 was outlier, dc'd hep gtt, cocaine neg uds-will dc asa (6) History of recent trauma Current Visit: Yes Status: Acute Assessment and Plan: CT chest and A/P - no pneumothorax, no evidence of hemorrhage, liver laceration or other signs of traumatic injury (7) Left acute otitis media Current Visit: Yes Status: Acute Assessment and Plan: abx as above (8) Hypoalbuminemia Current Visit: Yes Status: Acute Assessment and Plan: nutrition consulted (9) Hypokalemia Current Visit: Yes Status: Resolved Assessment and Plan: K+ 2.8 in eD, resolved with repeated oral repletion -cont oral replete -mag at goal -tele -cont to monitor lytes (10) Hepatitis C virus Current Visit: Yes Status: Chronic Assessment and Plan: on chart review + Hep c testing in past HIV neg in past fu with pcp outpt (11) Depression Current Visit: No Status: Chronic Assessment and Plan: stable previously on medication, not on any now DVT Prophylaxis: hep sq - Time Spent with Patient Total time spent is greater than 50% in coordination of care (as documented) at patient's floor/unit and/or counseling patient: 25 - 35 minutes Plan of Care Discussed with: patient Internal Medicine: Result - Labs CBC & Chem 7: 01/14/18 03:50 01/14/18 03:50 Labs: Short CBC 01/14/18 Range/Units 03:50 WBC 30.1 H* (4.3-11.1) K/mcL Hgb 9.6 L (11.5-15.4) g/dL Hct 28.8 L (35.3-44.9) % Plt Count 362 (140-400) K/mcL Neutrophils # 27.7 H (1.6-8.9) K/mcL BMP 01/13/18 01/14/18 16:15 03:50 Sodium 141 Potassium 3.0 L 3.6 Chloride 109 H Carbon Dioxide 20 L BUN 13 Creatinine 0.66 Glucose 115 H Calcium 8.5 L - ABG Interpretation ABG results: PT/INR, D-dimer PT 11.9 Seconds (9.4-12.1) 01/12/18 19:43 - Impressions Impressions Chest X-Ray 01/13/18 07:00 IMPRESSION: 1. Interval placement of right-sided chest tube. Decrease in size of right pleural effusion, now small to moderate in size. Right apical pneumothorax measures 5 mm. 2. Pulmonary edema and small left pleural effusion. The findings were sent to the Radiology Results Communication [facility] at 8:16 am on 01/13/2018to be communicated to a licensed caregiver. D/ / Belén Carlton MD / Belén Carlton MD Interpreting Provider: Belén Carlton MD Echocardiogram 01/13/18 19:29 Impressions: Technically adequate exam. LVEF 65%. Normal left ventricular diastolic function. Normal right ventricular structure and function. Mildly dilated left atrium. No significant valvular abnormality No evidence of pulmonary hypertension. Left Ventricular Wall Motion: Rest Echo Findings All wall segments showed normal motion. Findings: Study Quality * Technically adequate exam. ECG Findings * Normal sinus rhythm. Left Ventricle * LVEF 65%. * Normal LV chamber size, wall thickness and function. * Normal left ventricular diastolic function. * No segmental dysfunction. Right Ventricle * Normal right ventricular structure and function. Left Atrium * Mildly dilated left atrium. Right Atrium * Normal right atrial size. Interatrial Septum * No evidence of PFO by color Doppler. Mitral Valve * Normal mitral valve structure and function. * No mitral regurgitation. * No mitral stenosis. Tricuspid Valve * Normal tricuspid valve structure and function. * Trace tricuspid regurgitation. * No evidence of pulmonary hypertension. Pulmonic Valve * Normal pulmonic valve structure and function. * No pulmonic stenosis. * No pulmonic regurgitation. Aortic Valve * Trileaflet aortic valve. * Trileaflet aortic valve with normal function. Aorta * Normally sized aortic root. Pericardium * The pericardium appears normal. IVC * Normal IVC dimensions and inspiratory collapse. Pulmonary Artery * Normal visualized portions of the main pulmonary artery. Consult Discharge Plan - Plan Referrals: NONE,PCP [Primary Care Provider] - (4) Pneumonia Qualifiers: Pneumonia type: due to unspecified organism Laterality: right Lung location : lower lobe of lung Qualified Code(s): J18.1 - Lobar pneumonia, unspecified organism (10) Hepatitis C virus Qualifiers: Viral hepatitis chronicity: unspecified Hepatic coma status: without hepatic coma Qualified Code(s): B19.20 - Unspecified viral hepatitis C without hepatic coma (11) Depression Qualifiers: Depression Type: unspecified Qualified Code(s): F32.9 - Major depressive disorder, single episode, unspecified
[2018-01-14] MEDS: Nicotine 7 MG PATCH.TD24 TD SCH (08:36)
[2018-01-14] MEDS: *HR* HYDROcodone/Acet 5/325 mg TABLET PO PRN ×2 (09:54→20:42)
[2018-01-14 09:59] LABS: Estimated Average Glucose 108 mg/dl; Hemoglobin A1C 5.4 %
[2018-01-14] MEDS ORDERED: Sodium Chloride for inhalation 3 ML VIAL IH ONE (10:05)
[2018-01-14] MEDS: Azithromycin 500 MG in D5% in Water 250 ML IVPB SCH (13:33)
--- NOTE | 2018-01-14 14:58 | Electrocardiograph Report ---
[facility] Test Date: 2018-01-12 Pat Name: Dulce Maria Darden Department: EXAM5 Room: 2N10 Gender: F [employer]: : 1990 Requested By: Tom Johnson Order Number: [id number] Reading MD: Sathya Ash Measurements Intervals [place] Rate: 112 P: 85 KS: 121 QRS: 81 QRSD: 84 T: 18 QT: 400 QTc: 547 Interpretive Statements Sinus tachycardia Borderline ST depression, diffuse leads Prolonged QT interval Electronically Signed On 01-14-2018 14:57:10 EDT by Sathya Ash
[2018-01-15] MEDS: MethylPREDNISolone 40 MG/ML VIAL IVP SCH ×3 (00:25→17:05)
[2018-01-15] MEDS: Piperacillin/Tazobactam 3.375 GM in 0.9 % Sodium Chloride Mini Bag 100 ML IVPB SCH ×3 (00:25→17:05)
[2018-01-15] MEDS: *HR* OxyCODONE Immed Rel 5 MG TABLET PO PRN ×3 (00:33→20:03)
[2018-01-15 04:47] LABS: Hematocrit 26.2 % (35.3-44.9); Hemoglobin 8.7 g/dL (11.5-15.4); Lymphocytes # 1.2 K/mcL (0.6-4.6); Mean Corpuscular HGB Conc 33.2 g/dL (31.6-35.5); Mean Corpuscular Hemoglobin 28.2 pg (28.0-33.3); Mean Corpuscular Volume 85.1 fL (83.0-100.0); Mean Platelet Volume 10.2 fL (9.4-12.4); Platelet Count 231 K/mcL (140-400); Red Blood Count 3.08 M/mcL (3.82-4.97); Red Cell Distribution Width 14.3 % (11.5-14.5)
[2018-01-15 04:51] LABS: INR 0.9; Prothrombin Time 10.5 Seconds (9.4-12.1)
[2018-01-15 05:10] LABS: BUN/Creatinine Ratio 19 (6-26); Blood Urea Nitrogen 12 mg/dL (6-20); Carbon Dioxide 22 mEq/L (23-29); Chloride 111 mEq/L (98-107); Glucose 128 mg/dL (70-105); Magnesium 1.7 mg/dL (1.6-2.6); Osmolality,Calculated 295 (280-300); Potassium 3.5 mEq/L (3.5-5.1); Sodium 142 mEq/L (136-145); eGFR For Non-African Americans > 60 (> 60)
[2018-01-15] MEDS: Ipratropium/Albuterol Neb 3 ML IH SCH ×6 (05:17→23:44)
[2018-01-15] MEDS: *HR* Heparin 5,000 UNIT/ML VIAL SQ SCH ×3 (05:24→20:04)
[2018-01-15 05:26] LABS: Monocytes # 0.4 K/mcL (0.0-1.3); Neutrophils # 17.3 K/mcL (1.6-8.9); Platelet Estimate Normal (Normal)
[2018-01-15 05:27] LABS: Large Platelets Present (Not Present); Toxic Granulation Present (Not Present)
[2018-01-15] MEDS ORDERED: *HR* FentaNYL (PF) 100 MCG/2 ML VIAL ONE (07:33)
[2018-01-15] MEDS ORDERED: *HR* Propofol 200 MG/20 ML VIAL IVP ONE (07:33)
[2018-01-15] MEDS ORDERED: *HR* Midazolam HCl 2 MG/2 ML VIAL ONE (07:33)
[2018-01-15] MEDS ORDERED: Lidocaine -MPF 2% 2 ML VIAL ONE (07:34)
[2018-01-15] MEDS ORDERED: *HR* Succinylcholine 200 MG/10 ML VIAL IVP ONE (07:35)
--- NOTE | 2018-01-15 07:39 | Pulmonology Progress Note ---
Date of Encounter: 01/15/18 Time of Encounter: 07:30 Assessment and Plan (1) Pneumonia Current Visit: Yes Status: Acute Patient with this drug abuse history multifocal pneumonia with extensive bilateral infiltrates we will proceed with bronchoscopy with BAL patient is pretty anxious for the procedure with the background of IV drug abuse she might be a difficult sedation will proceed with MAC . Continue the current regiment of broad-spectrum antibiotics and steroids. Qualifiers: Pneumonia type: due to unspecified organism Laterality: bilateral Lung location: unspecified part of lung Qualified Code(s): J18.9 - Pneumonia, unspecified organism (2) Acute respiratory failure with hypoxia Current Visit: Yes Status: Acute Secondary to multifocal pneumonia and empyema on the right side. (3) Empyema Current Visit: Yes Status: Acute Patient with the right-sided empyema supported by tube thoracostomy under suction patient pleural drainage is minimal with a repeat CT chest shows minimal fluid collection patient has pneumothorax ex tobacco to know much leak in the atrium we will continue to monitor with the chest tube for now. Patient' s white count is coming down and also patient is afebrile. Subjective Principal diagnosis: Empyema Interval history: Patient who is a methamphetamine abuser she says she snorted it developed multifocal pneumonia with right-sided empyema with pneumothorax ex Vacuo. Patient white count is coming down but the CT chest showed extensive multifocal infiltrates proceed with bronchoscopy today. Objective PUL Vital signs: Last Vital Signs Temp 98.4 F 01/15/18 07:14 Pulse 69 01/15/18 07:14 Resp 18 01/15/18 07:14 BP 149/97 01/15/18 07:14 Pulse Ox 91 01/15/18 07:14 General appearance: appears uncomfortable Effort: mildly labored Auscultation: right: diminished breath sounds, bilateral: wheezes (scattered wheezes ) Cardiovascular: other (sinus tachycardia ) Results - Laboratory Findings CBC and BMP: 01/15/18 04:21 01/15/18 04:21 PT/INR, D-dimer PT 10.5 Seconds (9.4-12.1) 01/15/18 04:21 Abnormal lab findings: Abnormal lab results WBC 19.2 K/mcL (4.3-11.1) H 01/15/18 04:21 RBC 3.08 M/mcL (3.82-4.97) L 01/15/18 04:21 Hgb 8.7 g/dL (11.5-15.4) L 01/15/18 04:21 Hct 26.2 % (35.3-44.9) L 01/15/18 04:21 Immature Gran % 4.1 % (0-4) H 01/12/18 11:33 Metamyelocytes % 2.0 % (0) H 01/15/18 04:21 Neutrophils # 17.3 K/mcL (1.6-8.9) H 01/15/18 04:21 Toxic Granulation Present (Not Present) A 01/15/18 04:21 Large Platelets Present (Not Present) A 01/15/18 04:21 Heparin Anti-Xa, Unfract 0.15 IU/mL (0.30-0.70) L 01/13/18 16:15 Chloride 111 mEq/L (98-107) H 01/15/18 04:21 Carbon Dioxide 22 mEq/L (23-29) L 01/15/18 04:21 Glucose 128 mg/dL (70-105) H 01/15/18 04:21 POC Glucose 159 mg/dL (70-99) H 01/14/18 16:13 Calcium 8.0 mg/dL (8.6-10.3) L 01/15/18 04:21 Total Bilirubin 0.2 mg/dL (0.3-1.0) L 01/13/18 03:10 AST 10 Units/L (13-39) L 01/13/18 03:10 Alkaline Phosphatase 130 Units/L (34-104) H 01/13/18 03:10 B-Natriuretic Peptide 462 pg/mL (Less than 100) H 01/12/18 16:09 Serum Total Protein 5.7 g/dL (6.4-8.9) L 01/13/18 03:10 Albumin 2.5 g/dL (3.5-5.7) L 01/13/18 03:10 Albumin/Globulin Ratio 0.8 (1.1-2.2) L 01/13/18 03:10 HDL Cholesterol 10 mg/dL (40-59) L 01/13/18 03:10 Cholesterol/HDL Ratio 8.2 (0-4.9) H 01/13/18 03:10 Lipase 5 Units/L (11-82) L 01/12/18 11:33 Ur Squamous Epith Cells Many per lpf (None-Few) H 01/12/18 19:10 Pleural Appearance Hazy (Clear) A 01/12/18 15:16 Pleural Tot Nuc Cell 8698 TNC/mcL (0-1000) H 01/12/18 15:16 U Benzodiazepines Scrn Positive ng/mL (Klptnj=594) H 01/12/18 19:10 - Microbiology Findings Microbiology Findings: Microbiology, Last 48 Hours 01/13/18 21:35 Sputum Culture - Preliminary Sputum 01/12/18 19:01 Legionella Antigen - Final Urine,Clean Catch Streptococcus pneumoniae Antigen (M - Final 01/13/18 07:07 Blood Culture - Preliminary Peripheral Venipuncture Culture is incubating and being continuously monitored for growth. Final report to follow. 01/13/18 07:13 Blood Culture - Preliminary Peripheral Venipuncture Culture is incubating and being continuously monitored for growth. Final report to follow. - Clinical Findings Intake & Output: Intake & Output 01/14/18 01/14/18 01/15/18 15:59 23:59 07:59 Intake Total 2410 / 2410 590 / 590 350 / 350 Output Total 450 / 450 680 / 680 600 / 600 Balance 1959 / 1959 -90 / -90 -250 / -250 Weight 55.6 kg Consult Discharge Plan - Plan Referrals: NONE,PCP [Primary Care Provider] -
--- NOTE | 2018-01-15 08:31 | Anesthesia Evaluation PreOp ---
Date of Encounter: 01/15/18 Time of Encounter: 08:30 - Past History Planned Operation: bronchoscopy Cardiac History: Denies any Significant Hx Pulmonary History: Smoker, Other (admitted with resp. distress, pneumonia/ empyema. Has R chest tube placement for purulent material. Required oxygen at time of admission, has since been weaned off.) [employer] History: Denies Any Significant HX Other Medical History: Denies Any Significant HX Anesthesia History: No Prior Anesthetic Complications, Past Anesthesia Alcohol Use: none Drug use: other (marijuana, methamphetamine use. States she hasn't used in one month) Medications and Allergies Ibuprofen [Motrin Ib] 800 mg PO Q4-6H PRN 01/12/18 [History] 3 Allergy/AdvReac Type Severity Reaction Status Date / Time No Known Allergies Allergy Verified 01/12/18 11:58 - Meds/Allergy Pre-op Review Medications Reviewed: Yes Allergies Reviewed: Yes Beta Blockers on Current Med List: No Anesthesia Results - Labs 01/15/18 04:21 01/15/18 04:21 - Imaging EKG: report reviewed (sinus rhythm) Additional studies: normal echo, no cardiac pathology identified. Anesthesia Exam Selected Entries 01/15/18 07:14 Temperature 98.4 F Pulse Rate 69 Respiratory Rate 18 Blood Pressure 149/97 O2 Sat by Pulse Oximetry 91 Weight: 55.6 kg NPO (# of Hours): over 8 hours - HEENT Pupil (Motor): Pupils equal Mallampati: I Teeth: Poor dentition (multiple broken, rotten teeth "meth mouth") Oral Opening: Greater than 3 - Cardiac Rhythm: Regular Murmur: None - Pulmonary Breath Sounds: bilateral Rhonchi (L greater than R) Respiratory Effort: Symmetrical Anesthesia Assess/Plan ASA Score: 3 Modified [place] Scale for Level of Consciousness: Anixous, agitated or restless Anesthetic Plan: General Monitoring Plan: Standard Monitors Recovery Plan: PACU (Discussed GA/MAC, agreed to proceed.)
--- NOTE | 2018-01-15 09:04 | Internal Med Progress Note ---
Hospitalist Progress Note - Encounter Date of Encounter: 01/15/18 Time of Encounter: 07:45 - Subjective Interval History: awake, did not sleep well. denies fevers, chills, n/v. cough and unable to bring up sputum. no abd pain, difficulty urinating, having good intake of fluids but no appetite to eat. npo in prep for possible bronch - Exam Vitals: Temp Pulse Resp BP Pulse Ox 98.4 F 72 18 149/97 91 01/15/18 07:14 01/15/18 08:29 01/15/18 08:29 01/15/18 07:14 01/15/18 08:29 Exam: General: awake, alert, appears stated age, fatigued appearing HEENT: pupils equal, round, moist mucus membranes, poor dentition Neck: supple, trachea midline Cardiovascular: reg rate and rhythm, normal S1 & S2, no rubs, murmurs or gallops appreciated. no lower extremity edema Lungs:no resp distress, normal work of breathing on room air, + rhonchi, diminished right breath sounds ant/lat/post, + rhonchi left lung as well, no wheezing appreciated Abdomen:Soft, non-tender, non-distended, + bowel sounds Neurological: AAOx3 - Assessment and Plan (1) Severe sepsis Current Visit: Yes Assessment and Plan: as evidenced by HR 116, RR 26, BP drop from 132/65 to 110/67 , WBC 40, Lactic acid 3 and suspected pneumonia -s/p 2L boluses in ED per sepsis procotol, trended lactate and down to 1.8 now -CXR new moderate to large plueral and parenchymal opacity lower 2/3 right lung -CTA Chest: 1.There is a large multiloculated right pleural effusion which results in significant lung atelectasis and mediastinal/cardiac shift to the left. This could represent posttraumatic loculated effusion. There is no internal gas foci though empyema cannot be excluded. 2.Extensive right lung consolidation with right lower lobe bronchial opacification and hypodense changes which suggest possible aspiration. There are multifocal basal circumscribed fluid collections which could represent developing pulmonary abscess. 3. Trace simple left pleural effusion with mild patchy perihilar consolidation. -CT A/P without acute findings / signs of infection, ROS neg for gi symptoms -Left otitis media on exam - UA neg -no skin wounds that appear infected -now off ivfs -bl cxs ngtd -sputum cx gpc, gnr and yeast , legionella and strp ag neg -thoracentesis fluid studies pending: pleural fluid gram stain many wbcs, culture ngtd, anaerobic cx ngtd -vanc + zosyn -01/13 - lactate--down to 2, -leukocytosis down to 20s, afebrile, normal HR, BP low 100s/50-60s -01/14 worsening pna on imaging, WBC increase- Azithro added by pulm (2) Acute respiratory failure with hypoxia Current Visit: Yes Status: Acute Assessment and Plan: 2/2 large right pleural effusions and Pneumonia, suspicious for aspiration pna, Empyema, organism uk at this time -supplemental O2, weaning as able -Emergent IR thoracentesis and chest tube placement given CT chest findings with mediastinal shift in ED -CTA did not suggest traumatic effusion / Chest tube drainage is NOT bloody -treatment of pneumonia/empyema as below -pulm following (3) Pleural effusion Current Visit: Yes Status: Acute Assessment and Plan: treatment as above -fluid studies as above -Chest tube management as per pulm (4) Pneumonia Current Visit: Yes Status: Acute Assessment and Plan: right loculated pleural effusions and Pneumonia, Empyema, organism uk at this time Worsening on imaging 01/14 -fluid studies as above -vanc + zosyn empirically to cover aspiration, + azithro 01/14 -standing and prn nebs -IV steroids -sputum cx as above - legionella, strep ag neg -viral resp panel neg -pulm is following -01/13 chest tube with 1300 cc purulent fluid overnight, cont chest tube as per pulm, CXR today with pneumothorax c/w pneumothorax ex vacuo , will cont to monitor for trapped lung and any need for surgical intervention -01/14 worsening multi focal pna on cxr, prgression to let chest--CT chest with worsening left opacities azithro added, induced sputum x3, pulm considering bronchoscopy possibly tomorrow, no intrapleural tpa needed today, maintain chest tube to suction -01/15 bronchoscopy and fu pullm recs (5) Elevated troponin Current Visit: Yes Status: Acute Assessment and Plan: Suspect Type II VA in setting of Severe Sepsis, Heart score 3, asx, working to rule out endocarditis or pericardial infection given empyema -trop 0.36 then peak at 5.5 - sinus tachy in ED and EKG without acute ischemic changes , 01/12 repeat EKG with new twi I, II avl -cards consulted-hep gtt started (trop improvement prior to achieving therapeutic range) -cont asa, lipid panel with low HDL otherwise wnl -tele -tsh wnl, a1c pending -bnp 462 -stat echo: LVEF 65%. Normal left ventricular diastolic function. Normal right ventricular structure and function. Mildly dilated left atrium. No significant valvular abnormality No evidence of pulmonary hypertension. -UDS neg- as per cards recs if neg cocaine start low dose BB but BPs have not yet permitted initiation -seen in eval by cards 01/13, believe trop of 5 was outlier, dc'd hep gtt, cocaine neg uds-will dc asa (6) History of recent trauma Current Visit: Yes Status: Acute Assessment and Plan: CT chest and A/P - no pneumothorax, no evidence of hemorrhage, liver laceration or other signs of traumatic injury (7) Left acute otitis media Current Visit: Yes Status: Acute Assessment and Plan: abx as above (8) Hypoalbuminemia Current Visit: Yes Status: Acute Assessment and Plan: nutrition consulted (9) Hypokalemia Current Visit: Yes Status: Resolved Assessment and Plan: K+ 2.8 in eD, resolved with repeated oral repletion -cont oral replete -mag at goal -tele -cont to monitor lytes (10) Hepatitis C virus Current Visit: Yes Status: Chronic Assessment and Plan: on chart review + Hep c testing in past HIV neg in past fu with pcp outpt (11) Depression Current Visit: No Status: Chronic Assessment and Plan: stable previously on medication, not on any now (12) Anemia Current Visit: Yes Status: Acute Assessment and Plan: Present on admit with hgb 10.6, so down tredn this admission no signs of bleeding all 3 cell lines decreased suspect decrease is from ivfs and repeat blood draws -will cont to monitor hgb and for any signs of bleeding DVT Prophylaxis: hep sq - Time Spent with Patient Total time spent is greater than 50% in coordination of care (as documented) at patient's floor/unit and/or counseling patient: 25 - 35 minutes Plan of Care Discussed with: patient Internal Medicine: Result - Labs CBC & Chem 7: 01/15/18 04:21 01/15/18 04:21 Labs: Short CBC 01/15/18 Range/Units 04:21 WBC 19.2 H (4.3-11.1) K/mcL Hgb 8.7 L (11.5-15.4) g/dL Hct 26.2 L (35.3-44.9) % Plt Count 231 (140-400) K/mcL Neutrophils # 17.3 H (1.6-8.9) K/mcL BMP 01/15/18 04:21 Sodium 142 Potassium 3.5 Chloride 111 H Carbon Dioxide 22 L BUN 12 Creatinine 0.62 Glucose 128 H Calcium 8.0 L - ABG Interpretation ABG results: PT/INR, D-dimer PT 10.5 Seconds (9.4-12.1) 01/15/18 04:21 - Impressions Impressions Chest CT 01/14/18 08:26 IMPRESSION: 1. Interval placement of right pleural catheter with significant decrease in the volume of a previously loculated pleural effusion. 2. Residual fluid and air remains. 3. Dense airspace opacification in the right middle and lower lobes with worsening ground-glass opacities in the left lung. Pattern likely represents multifocal pneumonia. Edema would be considered alternatively. D/ / Cole Serrano MD / Cole Serrano MD Interpreting Provider: Cole Serrano MD Consult Discharge Plan - Plan Referrals: NONE,PCP [Primary Care Provider] - (4) Pneumonia Qualifiers: Pneumonia type: due to unspecified organism Laterality: right Lung location : lower lobe of lung Qualified Code(s): J18.1 - Lobar pneumonia, unspecified organism (10) Hepatitis C virus Qualifiers: Viral hepatitis chronicity: unspecified Hepatic coma status: without hepatic coma Qualified Code(s): B19.20 - Unspecified viral hepatitis C without hepatic coma (11) Depression Qualifiers: Depression Type: unspecified Qualified Code(s): F32.9 - Major depressive disorder, single episode, unspecified (12) Anemia Qualifiers: Anemia type: unspecified type Qualified Code(s): D64.9 - Anemia, unspecified
[2018-01-15] MEDS ORDERED: *HR* Promethazine 25 MG/ML VIAL ONE (09:26)
--- NOTE | 2018-01-15 10:03 | Anesthesia Evaluation Post Op ---
Date of Encounter: 01/15/18 Time of Encounter: 10:00 - Vital Signs Vital Signs: Selected Entries 01/15/18 09:48 Temperature 98.7 F Pulse Rate 81 Respiratory Rate 28 Blood Pressure 133/92 O2 Sat by Pulse Oximetry 93 - Lungs Lungs: Wheezes, Rales - Airway Airway: Non-obstructed - Cardiovascular Regular Rate - Mental Status Mental Status: Alert & Oriented, Answers Appropriately - Nausea Vomiting Nausea Vomiting: Responds to treatment with IV Meds - Hydration Hydration: NPO Notes: 01/15/18 10:02 Patient room air sat prior to procedure 88-89%. Transferring to floor on 3L/NC , O2 sats 92%. - Discharge PostOp Status: Transfer Patient to floor
[2018-01-15] MEDS: Nicotine 7 MG PATCH.TD24 TD SCH (10:30)
[2018-01-15] MEDS: 0.9 % Sodium Chloride 500 ML IVC SCH ×2 (10:31→16:56)
[2018-01-15] MEDS: Azithromycin 500 MG in D5% in Water 250 ML IVPB SCH (12:46)
[2018-01-15] MEDS ORDERED: Albuterol 2.5 MG/3 ML NEBULIZER IH PRN (13:57)
[2018-01-15] MEDS: *HR* HYDROcodone/Acet 5/325 mg TABLET PO PRN (15:52)
[2018-01-15 17:58] LABS: Appearance of Body Fluid Slightly Hazy (Clear); Volume of Body Fluid 22 mL
[2018-01-15 18:12] LABS: Appearance of Body Fluid Slightly Hazy (Clear); Volume of Body Fluid 10 mL
[2018-01-15] MEDS: Melatonin 3 MG TABLET PO PRN (20:03)
[2018-01-16] MEDS: MethylPREDNISolone 40 MG/ML VIAL IVP SCH ×4 (00:20→23:59)
[2018-01-16] MEDS: Piperacillin/Tazobactam 3.375 GM in 0.9 % Sodium Chloride Mini Bag 100 ML IVPB SCH ×3 (00:20→14:59)
[2018-01-16] MEDS: Ipratropium/Albuterol Neb 3 ML IH SCH ×6 (03:44→23:07)
[2018-01-16] MEDS: *HR* HYDROcodone/Acet 5/325 mg TABLET PO PRN ×2 (04:39→11:20)
[2018-01-16] MEDS: *HR* Heparin 5,000 UNIT/ML VIAL SQ SCH ×3 (04:39→21:26)
[2018-01-16 05:05] LABS: Segmented Neutrophils % 85.8 %
[2018-01-16 05:06] LABS: Basophils # 0.1 K/mcL (0.0-0.2); Basophils % 0.3 %; Hematocrit 29.1 % (35.3-44.9); Immature Granulocytes % 6.9 % (0-4); Lymphocytes # 1.2 K/mcL (0.6-4.6); Lymphocytes % 4.4 %; Mean Corpuscular HGB Conc 34.4 g/dL (31.6-35.5); Mean Corpuscular Hemoglobin 29.4 pg (28.0-33.3); Mean Corpuscular Volume 85.6 fL (83.0-100.0); Mean Platelet Volume 10.2 fL (9.4-12.4); Monocytes # 0.7 K/mcL (0.0-1.3); Monocytes % 2.6 %; Neutrophils # 24.2 K/mcL (1.6-8.9); Platelet Count 339 K/mcL (140-400); Red Cell Distribution Width 14.2 % (11.5-14.5)
[2018-01-16 05:25] LABS: BUN/Creatinine Ratio 19 (6-26); Blood Urea Nitrogen 10 mg/dL (6-20); Calcium 8.2 mg/dL (8.6-10.3); Carbon Dioxide 21 mEq/L (23-29); Chloride 110 mEq/L (98-107); Glucose 127 mg/dL (70-105); Magnesium 1.8 mg/dL (1.6-2.6); Osmolality,Calculated 293 (280-300); Potassium 3.4 mEq/L (3.5-5.1); Sodium 141 mEq/L (136-145); eGFR For Non-African Americans > 60 (> 60)
[2018-01-16 05:39] LABS: Toxic Granulation Present (Not Present)
[2018-01-16 05:40] LABS: Platelet Estimate Normal (Normal)
[2018-01-16] MEDS: Nicotine 7 MG PATCH.TD24 TD SCH (08:07)
[2018-01-16] MEDS: 0.9 % Sodium Chloride 500 ML IVC SCH ×2 (08:15→10:15)
[2018-01-16] MEDS: Azithromycin 500 MG in D5% in Water 250 ML IVPB SCH (11:13)
--- NOTE | 2018-01-16 13:01 | Internal Med Progress Note ---
Hospitalist Progress Note - Encounter Date of Encounter: 01/16/18 Time of Encounter: 12:58 - Subjective Interval History: No acute events. Patient states breathing stable. Only has a cough from rhinorrhea. Denies fevers/chills, chest pain. - Exam Vitals: Temp Pulse Resp BP Pulse Ox 98.8 F 96 18 135/89 94 01/16/18 11:33 01/16/18 11:33 01/16/18 11:33 01/16/18 11:01/16/18 08:23 Exam: General: AAOx3 HEENT: pupils equal, round, moist mucus membranes, poor dentition Neck: supple, trachea midline CVS: RRR Lungs: no resp distress, normal work of breathing on room air, + rhonchi, diminished right breath sounds, no wheezing Abdomen:Soft, non-tender, non-distended, + bowel sounds Neurological: AAOx3 - Assessment and Plan (1) Acute respiratory failure with hypoxia Current Visit: Yes Status: Acute Assessment and Plan: 2/2 large right pleural effusions and Pneumonia, suspicious for aspiration pna, Empyema, organism uk at this time -supplemental O2, weaning as able -Emergent IR thoracentesis and chest tube placement given CT chest findings with mediastinal shift in ED -CTA did not suggest traumatic effusion / Chest tube drainage is NOT bloody -treatment of pneumonia/empyema as below -pulm following, recommendations apreciated (2) Severe sepsis Current Visit: Yes Assessment and Plan: as evidenced by HR 116, RR 26, BP drop from 132/65 to 110/67 , WBC 40, Lactic acid 3 and suspected pneumonia -s/p 2L boluses in ED per sepsis procotol, trended lactate and down to 1.8 now -CXR new moderate to large plueral and parenchymal opacity lower 2/3 right lung -CTA Chest: 1.There is a large multiloculated right pleural effusion which results in significant lung atelectasis and mediastinal/cardiac shift to the left. This could represent posttraumatic loculated effusion. There is no internal gas foci though empyema cannot be excluded. 2.Extensive right lung consolidation with right lower lobe bronchial opacification and hypodense changes which suggest possible aspiration. There are multifocal basal circumscribed fluid collections which could represent developing pulmonary abscess. 3. Trace simple left pleural effusion with mild patchy perihilar consolidation. -CT A/P without acute findings / signs of infection, ROS neg for gi symptoms -Left otitis media on exam -bl cxs ngtd -sputum cx gpc, gnr and yeast , legionella and strp ag neg -thoracentesis fluid studies pending: pleural fluid gram stain many wbcs, culture ngtd, anaerobic cx ngtd -vanc + zosyn -01/13 - lactate--down to 2, -leukocytosis down to 20s, afebrile, normal HR, BP low 100s/50-60s -01/14 worsening pna on imaging, WBC increase- Azithro added by pulm (3) Pleural effusion Current Visit: Yes Status: Acute Assessment and Plan: -fluid studies as above -Chest tube management as per Pulmonology (4) Pneumonia Current Visit: Yes Status: Acute Assessment and Plan: right loculated pleural effusions and Pneumonia, Empyema, organism uk at this time Worsening on imaging 01/14, azithro added afterwords -standing and prn nebs -IV steroids -legionella, strep ag neg -viral resp panel neg -pulm is following -01/13 chest tube with 1300 cc purulent fluid overnight, cont chest tube as per pulm, CXR today with pneumothorax c/w pneumothorax ex vacuo , will cont to monitor for trapped lung and any need for surgical intervention -01/14 worsening multi focal pna on cxr, prgression to let chest--CT chest with worsening left opacities azithro added, induced sputum x3, pulm considering bronchoscopy possibly tomorrow, no intrapleural tpa needed today, maintain chest tube to suction -01/15 bronchoscopy and fu pullm recs -vanc + zosyn empirically to cover aspiration, + azithro 01/14 (5) Hypokalemia Current Visit: Yes Status: Resolved Assessment and Plan: K+ 2.8 in eD, resolved with repeated oral repletion -cont oral replete -mag at goal -tele -cont to monitor lytes (6) Elevated troponin Current Visit: Yes Status: Acute Assessment and Plan: Suspect Type II CA in setting of Severe Sepsis, Heart score 3, asx, working to rule out endocarditis or pericardial infection given empyema -trop 0.36 then peak at 5.5 - sinus tachy in ED and EKG without acute ischemic changes , 01/12 repeat EKG with new twi I, II avl -cards consulted-hep gtt started (trop improvement prior to achieving therapeutic range) -cont asa, lipid panel with low HDL otherwise wnl -tele -tsh wnl, a1c pending -bnp 462 -stat echo: LVEF 65%. Normal left ventricular diastolic function. Normal right ventricular structure and function. Mildly dilated left atrium. No significant valvular abnormality No evidence of pulmonary hypertension. -UDS neg- as per cards recs if neg cocaine start low dose BB but BPs have not yet permitted initiation -seen in eval by cards 01/13, believe trop of 5 was outlier, dc'd hep gtt, cocaine neg uds-will dc asa (7) History of recent trauma Current Visit: Yes Status: Acute Assessment and Plan: CT chest and A/P - no pneumothorax, no evidence of hemorrhage, liver laceration or other signs of traumatic injury (8) Hypoalbuminemia Current Visit: Yes Status: Acute Assessment and Plan: nutrition consulted (9) Left acute otitis media Current Visit: Yes Status: Acute Assessment and Plan: abx as above (10) Hepatitis C virus Current Visit: Yes Status: Chronic Assessment and Plan: on chart review + Hep c testing in past HIV neg in past fu with pcp outpt (11) Depression Current Visit: No Status: Chronic Assessment and Plan: stable previously on medication, not on any now (12) Anemia Current Visit: Yes Status: Acute Assessment and Plan: Present on admit with hgb 10.6, so down tredn this admission no signs of bleeding all 3 cell lines decreased suspect decrease is from ivfs and repeat blood draws -will cont to monitor hgb and for any signs of bleeding - Time Spent with Patient Total time spent is greater than 50% in coordination of care (as documented) at patient's floor/unit and/or counseling patient: Internal Medicine: Result - Labs CBC & Chem 7: 01/16/18 04:29 01/16/18 04:29 Labs: Short CBC 01/16/18 Range/Units 04:29 WBC 28.2 H (4.3-11.1) K/mcL Hgb 10.0 L (11.5-15.4) g/dL Hct 29.1 L (35.3-44.9) % Plt Count 339 (140-400) K/mcL Neutrophils # 24.2 H (1.6-8.9) K/mcL BMP 01/16/18 04:29 Sodium 141 Potassium 3.4 L Chloride 110 H Carbon Dioxide 21 L BUN 10 Creatinine 0.52 L Glucose 127 H Calcium 8.2 L - ABG Interpretation ABG results: PT/INR, D-dimer PT 10.5 Seconds (9.4-12.1) 01/15/18 04:21 Consult Discharge Plan - Plan Referrals: Lewis Shin [Resident] - 01/31/18 2:00 pm (YOU WILL RECEIVE IN THE MAIL A NEW PATIENT PACKET PLEASE FILL THIS OUT AND TAKE IT WITH YOU TO YOUR APPOINTMENT. PLEASE TAKE PICTURE ID, INSURANCE CARD, AND A LIST OF ALL MEDCATIONS INCLUDING OVER THE COUNTER. THIS OFFICE DOES NOT GIVE OUT CONTROLLED MEDICATION. IF YOU NEED TO CANCEL PLEASE CALL [phone] 24 HOURS PRIOR TO YOUR APPOINTMENT) (4) Pneumonia Qualifiers: Pneumonia type: due to unspecified organism Laterality: bilateral Lung location: unspecified part of lung Qualified Code(s): J18.9 - Pneumonia, unspecified organism (10) Hepatitis C virus Qualifiers: Viral hepatitis chronicity: unspecified Hepatic coma status: without hepatic coma Qualified Code(s): B19.20 - Unspecified viral hepatitis C without hepatic coma (11) Depression Qualifiers: Depression Type: unspecified Qualified Code(s): F32.9 - Major depressive disorder, single episode, unspecified (12) Anemia Qualifiers: Anemia type: unspecified type Qualified Code(s): D64.9 - Anemia, unspecified
[2018-01-16] MEDS: *HR* OxyCODONE Immed Rel 5 MG TABLET PO PRN (15:03)
--- NOTE | 2018-01-16 15:20 | Pulmonology Progress Note ---
Date of Encounter: 01/16/18 Time of Encounter: 08:00 Assessment and Plan (1) Pneumonia Current Visit: Yes Status: Acute Patient with this drug abuse history multifocal pneumonia with extensive bilateral infiltrates we will proceed with bronchoscopy with BAL patient is pretty anxious for the procedure with the background of IV drug abuse she might be a difficult sedation will proceed with MAC . Continue the current regiment of broad-spectrum antibiotics and steroids. 01/16 to continue broad-spectrum antibiotics and steroids BAL till date is not growing any organisms blood cultures are negative still with the patient the biopsy count is trending down the fever curve is stable we will consider de- escalating the MRSA coverage first and azithromycin next. Patient will continue Zosyn as it gives good adequate anaerobic coverage. Probably on discharge she will need at least 4 weeks of Augmentin by mouth therapy. Qualifiers: Pneumonia type: due to unspecified organism Laterality: bilateral Lung location: unspecified part of lung Qualified Code(s): J18.9 - Pneumonia, unspecified organism (2) Acute respiratory failure with hypoxia Current Visit: Yes Status: Acute Secondary to multifocal pneumonia and empyema on the right side. (3) Empyema Current Visit: Yes Status: Acute Patient with the right-sided empyema supported by tube thoracostomy under suction patient pleural drainage is minimal with a repeat CT chest shows minimal fluid collection patient has pneumothorax ex tobacco to know much leak in the atrium we will continue to monitor with the chest tube for now. Patient' s white count is coming down and also patient is afebrile. 01/16 she was afebrile with WBC count is increased intrarenal 60, bili the chest tube to suction tonight we will repeat a CT chest without contrast to see the amount of fluid left and also the size of pneumothorax ex vacuo. Subjective Principal diagnosis: Empyema Interval history: Patient who is a methamphetamine abuser she says she snorted it developed multifocal pneumonia with right-sided empyema with pneumothorax ex Vacuo. Patient white count is coming down but the CT chest showed extensive multifocal infiltrates proceed with bronchoscopy today. 01/16 Had bronchoscopy yesterday BAL is not growing any organisms for now. Patient still having oxygen requirement has some mildly labored breathing denies any chest pain or chest tightness except for some discomfort at the chest tube insertion site. Objective PUL Vital signs: Last Vital Signs Temp 98.8 F 01/16/18 11:33 Pulse 96 01/16/18 11:33 Resp 18 01/16/18 11:33 BP 135/89 01/16/18 11:33 Pulse Ox 94 01/16/18 08:23 General appearance: other (Mild respiratory distress) Effort: mildly labored Auscultation: right: diminished breath sounds, bilateral: wheezes (very minimal scattered wheezes ) Results - Laboratory Findings CBC and BMP: 01/16/18 04:29 01/16/18 04:29 PT/INR, D-dimer PT 10.5 Seconds (9.4-12.1) 01/15/18 04:21 Abnormal lab findings: Abnormal lab results WBC 28.2 K/mcL (4.3-11.1) H 01/16/18 04:29 RBC 3.40 M/mcL (3.82-4.97) L 01/16/18 04:29 Hgb 10.0 g/dL (11.5-15.4) L 01/16/18 04:29 Hct 29.1 % (35.3-44.9) L 01/16/18 04:29 Immature Gran % 6.9 % (0-4) H 01/16/18 04:29 Metamyelocytes % 2.0 % (0) H 01/15/18 04:21 Neutrophils # 24.2 K/mcL (1.6-8.9) H 01/16/18 04:29 Toxic Granulation Present (Not Present) A 01/16/18 04:29 Large Platelets Present (Not Present) A 01/15/18 04:21 Heparin Anti-Xa, Unfract 0.15 IU/mL (0.30-0.70) L 01/13/18 16:15 Potassium 3.4 mEq/L (3.5-5.1) L 01/16/18 04:29 Chloride 110 mEq/L (98-107) H 01/16/18 04:29 Carbon Dioxide 21 mEq/L (23-29) L 01/16/18 04:29 Creatinine 0.52 mg/dL (0.60-1.20) L 01/16/18 04:29 Glucose 127 mg/dL (70-105) H 01/16/18 04:29 POC Glucose 143 mg/dL (70-99) H 01/15/18 11:20 Calcium 8.2 mg/dL (8.6-10.3) L 01/16/18 04:29 Total Bilirubin 0.2 mg/dL (0.3-1.0) L 01/13/18 03:10 AST 10 Units/L (13-39) L 01/13/18 03:10 Alkaline Phosphatase 130 Units/L (34-104) H 01/13/18 03:10 B-Natriuretic Peptide 462 pg/mL (Less than 100) H 01/12/18 16:09 Serum Total Protein 5.7 g/dL (6.4-8.9) L 01/13/18 03:10 Albumin 2.5 g/dL (3.5-5.7) L 01/13/18 03:10 Albumin/Globulin Ratio 0.8 (1.1-2.2) L 01/13/18 03:10 HDL Cholesterol 10 mg/dL (40-59) L 01/13/18 03:10 Cholesterol/HDL Ratio 8.2 (0-4.9) H 01/13/18 03:10 Lipase 5 Units/L (11-82) L 01/12/18 11:33 Ur Squamous Epith Cells Many per lpf (None-Few) H 01/12/18 19:10 Fluid Appearance Slightly Hazy (Clear) A 01/15/18 13:51 Pleural Appearance Hazy (Clear) A 01/12/18 15:16 Pleural Tot Nuc Cell 8698 TNC/mcL (0-1000) H 01/12/18 15:16 Vancomycin Trough 17 mcg/mL (5-10) H 01/15/18 11:52 U Benzodiazepines Scrn Positive ng/mL (Puorsi=061) H 01/12/18 19:10 - Microbiology Findings Microbiology Findings: Microbiology, Last 48 Hours 01/15/18 13:51 Acid Fast Stain - Final Right Middle Lobe Lung 01/15/18 13:51 Acid Fast Stain - Final Left Lower Lobe Lung 01/15/18 13:51 Respiratory Culture - Preliminary Left Lower Lobe Lung No growth. 01/15/18 13:51 Respiratory Culture - Preliminary Right Middle Lobe Lung No growth. 01/13/18 21:35 Sputum Culture - Preliminary Sputum - Clinical Findings Intake & Output: Intake & Output 01/15/18 01/16/18 01/16/18 23:59 07:59 15:59 Intake Total 720 / 720 350 / 350 100 / 100 Output Total 540 / 540 1460 / 1460 10 Balance 180 / 180 -1110 / -1110 90 / 90 Weight 57.4 kg Consult Discharge Plan - Plan Referrals: Lewis Shin [Resident] - 01/31/18 2:00 pm (YOU WILL RECEIVE IN THE MAIL A NEW PATIENT PACKET PLEASE FILL THIS OUT AND TAKE IT WITH YOU TO YOUR APPOINTMENT. PLEASE TAKE PICTURE ID, INSURANCE CARD, AND A LIST OF ALL MEDCATIONS INCLUDING OVER THE COUNTER. THIS OFFICE DOES NOT GIVE OUT CONTROLLED MEDICATION. IF YOU NEED TO CANCEL PLEASE CALL [phone] 24 HOURS PRIOR TO YOUR APPOINTMENT)
[2018-01-17] MEDS: Ipratropium/Albuterol Neb 3 ML IH SCH ×5 (03:56→19:39)
[2018-01-17] MEDS: *HR* Heparin 5,000 UNIT/ML VIAL SQ SCH ×3 (05:09→21:16)
[2018-01-17] MEDS: *HR* OxyCODONE Immed Rel 5 MG TABLET PO PRN ×2 (05:09→17:41)
[2018-01-17 05:31] LABS: Basophils % 0.7 %; Hematocrit 29.7 % (35.3-44.9); Hemoglobin 9.7 g/dL (11.5-15.4); Immature Granulocytes % 10.1 % (0-4); Lymphocytes # 1.3 K/mcL (0.6-4.6); Mean Corpuscular HGB Conc 32.7 g/dL (31.6-35.5); Mean Corpuscular Hemoglobin 28.1 pg (28.0-33.3); Mean Corpuscular Volume 86.1 fL (83.0-100.0); Mean Platelet Volume 9.9 fL (9.4-12.4); Monocytes # 0.4 K/mcL (0.0-1.3); Monocytes % 1.9 %; Neutrophils # 17.1 K/mcL (1.6-8.9); Platelet Count 467 K/mcL (140-400); Red Blood Count 3.45 M/mcL (3.82-4.97); Red Cell Distribution Width 14.4 % (11.5-14.5); Segmented Neutrophils % 81.3 %
[2018-01-17 05:49] LABS: BUN/Creatinine Ratio 19 (6-26); Blood Urea Nitrogen 9 mg/dL (6-20); Calcium 8.3 mg/dL (8.6-10.3); Carbon Dioxide 25 mEq/L (23-29); Chloride 106 mEq/L (98-107); Glucose 121 mg/dL (70-105); Osmolality,Calculated 290 (280-300); Potassium 3.4 mEq/L (3.5-5.1); Sodium 140 mEq/L (136-145); eGFR For Non-African Americans > 60 (> 60)
[2018-01-17 06:15] LABS: Basophils # 0.2 K/mcL (0.0-0.2)
[2018-01-17] MEDS: 0.9 % Sodium Chloride 500 ML IVC SCH ×2 (07:40→11:15)
[2018-01-17] MEDS ORDERED: Furosemide 40 MG/4 ML VIAL IVP ONE (08:23)
--- NOTE | 2018-01-17 08:25 | Pulmonology Progress Note ---
Date of Encounter: 01/17/18 Time of Encounter: 08: Assessment and Plan (1) Pneumonia Current Visit: Yes Status: Acute Patient with this drug abuse history multifocal pneumonia with extensive bilateral infiltrates we will proceed with bronchoscopy with BAL patient is pretty anxious for the procedure with the background of IV drug abuse she might be a difficult sedation will proceed with MAC . Continue the current regiment of broad-spectrum antibiotics and steroids. 01/16 to continue broad-spectrum antibiotics and steroids BAL till date is not growing any organisms blood cultures are negative still with the patient the biopsy count is trending down the fever curve is stable we will consider de- escalating the MRSA coverage first and azithromycin next. Patient will continue Zosyn as it gives good adequate anaerobic coverage. Probably on discharge she will need at least 4 weeks of Augmentin by mouth therapy. 01/17 MRSA swab positive will keep the current regimen of antibiotics will descalate Azitjromycin tomorrow . Qualifiers: Pneumonia type: due to unspecified organism Laterality: bilateral Lung location: unspecified part of lung Qualified Code(s): J18.9 - Pneumonia, unspecified organism (2) Acute respiratory failure with hypoxia Current Visit: Yes Status: Acute Secondary to multifocal pneumonia and empyema on the right side. (3) Empyema Current Visit: Yes Status: Acute Patient with the right-sided empyema supported by tube thoracostomy under suction patient pleural drainage is minimal with a repeat CT chest shows minimal fluid collection patient has pneumothorax ex tobacco to know much leak in the atrium we will continue to monitor with the chest tube for now. Patient' s white count is coming down and also patient is afebrile. 01/16 she was afebrile with WBC count is increased intrarenal 60, bili the chest tube to suction tonight we will repeat a CT chest without contrast to see the amount of fluid left and also the size of pneumothorax ex vacuo. 01/17 chest tube is draining some 60 and but most of the fluid is drained with the pneumothorax ex vacuo still with some air Leak on coughing. Subjective Principal diagnosis: Empyema Interval history: Patient who is a methamphetamine abuser she says she snorted it developed multifocal pneumonia with right-sided empyema with pneumothorax ex Vacuo. Patient white count is coming down but the CT chest showed extensive multifocal infiltrates proceed with bronchoscopy today. 01/16 Had bronchoscopy yesterday BAL is not growing any organisms for now. Patient still having oxygen requirement has some mildly labored breathing denies any chest pain or chest tightness except for some discomfort at the chest tube insertion site. 01/17 patient is doing a lot better today her work of breathing is lot better. Objective PUL Vital signs: Last Vital Signs Temp 98.3 F 01/17/18 07:27 Pulse 67 01/17/18 07:27 Resp 18 01/17/18 07:27 BP 129/87 01/17/18 07:27 Pulse Ox 95 01/17/18 07:27 Auscultation: right: diminished breath sounds, bilateral: rales Results - Laboratory Findings CBC and BMP: 01/17/18 04:53 01/17/18 04:53 PT/INR, D-dimer PT 10.5 Seconds (9.4-12.1) 01/15/18 04:21 Abnormal lab findings: Abnormal lab results WBC 21.0 K/mcL (4.3-11.1) H 01/17/18 04:53 RBC 3.45 M/mcL (3.82-4.97) L 01/17/18 04:53 Hgb 9.7 g/dL (11.5-15.4) L 01/17/18 04:53 Hct 29.7 % (35.3-44.9) L 01/17/18 04:53 Plt Count 467 K/mcL (140-400) H 01/17/18 04:53 Immature Gran % 10.1 % (0-4) H 01/17/18 04:53 Metamyelocytes % 2.0 % (0) H 01/15/18 04:21 Neutrophils # 17.1 K/mcL (1.6-8.9) H 01/17/18 04:53 Toxic Granulation Present (Not Present) A 01/16/18 04:29 Platelet Estimate Slight increase (Normal) H 01/17/18 04:53 Large Platelets Present (Not Present) A 01/15/18 04:21 Heparin Anti-Xa, Unfract 0.15 IU/mL (0.30-0.70) L 01/13/18 16:15 Potassium 3.4 mEq/L (3.5-5.1) L 01/17/18 04:53 Creatinine 0.48 mg/dL (0.60-1.20) L 01/17/18 04:53 Glucose 121 mg/dL (70-105) H 01/17/18 04:53 POC Glucose 143 mg/dL (70-99) H 01/15/18 11:20 Calcium 8.3 mg/dL (8.6-10.3) L 01/17/18 04:53 Total Bilirubin 0.2 mg/dL (0.3-1.0) L 01/13/18 03:10 AST 10 Units/L (13-39) L 01/13/18 03:10 Alkaline Phosphatase 130 Units/L (34-104) H 01/13/18 03:10 B-Natriuretic Peptide 462 pg/mL (Less than 100) H 01/12/18 16:09 Serum Total Protein 5.7 g/dL (6.4-8.9) L 01/13/18 03:10 Albumin 2.5 g/dL (3.5-5.7) L 01/13/18 03:10 Albumin/Globulin Ratio 0.8 (1.1-2.2) L 01/13/18 03:10 HDL Cholesterol 10 mg/dL (40-59) L 01/13/18 03:10 Cholesterol/HDL Ratio 8.2 (0-4.9) H 01/13/18 03:10 Lipase 5 Units/L (11-82) L 01/12/18 11:33 Ur Squamous Epith Cells Many per lpf (None-Few) H 01/12/18 19:10 Fluid Appearance Slightly Hazy (Clear) A 01/15/18 13:51 Pleural Appearance Hazy (Clear) A 01/12/18 15:16 Pleural Tot Nuc Cell 8698 TNC/mcL (0-1000) H 01/12/18 15:16 Vancomycin Trough 17 mcg/mL (5-10) H 01/15/18 11:52 U Benzodiazepines Scrn Positive ng/mL (Qpewgp=614) H 01/12/18 19:10 - Microbiology Findings Microbiology Findings: Microbiology, Last 48 Hours 01/15/18 13:51 Acid Fast Stain - Final Right Middle Lobe Lung 01/15/18 13:51 Acid Fast Stain - Final Left Lower Lobe Lung 01/15/18 13:51 Respiratory Culture - Preliminary Left Lower Lobe Lung No growth. 01/15/18 13:51 Respiratory Culture - Preliminary Right Middle Lobe Lung No growth. 01/13/18 21:35 Sputum Culture - Preliminary Sputum - Clinical Findings Intake & Output: Intake & Output 01/16/18 01/17/18 01/17/18 23:59 07:59 15:59 Intake Total 470 / 470 350 / 350 Output Total 70 / 70 0 / 0 Balance 400 / 400 350 / 350 Weight 57.8 kg Consult Discharge Plan - Plan Referrals: Lewis Shin [Resident] - 01/31/18 2:00 pm (YOU WILL RECEIVE IN THE MAIL A NEW PATIENT PACKET PLEASE FILL THIS OUT AND TAKE IT WITH YOU TO YOUR APPOINTMENT. PLEASE TAKE PICTURE ID, INSURANCE CARD, AND A LIST OF ALL MEDCATIONS INCLUDING OVER THE COUNTER. THIS OFFICE DOES NOT GIVE OUT CONTROLLED MEDICATION. IF YOU NEED TO CANCEL PLEASE CALL [phone] 24 HOURS PRIOR TO YOUR APPOINTMENT)
[2018-01-17] MEDS ORDERED: Furosemide 40 MG/4 ML VIAL ONE (08:26)
[2018-01-17] MEDS: *HR* HYDROcodone/Acet 5/325 mg TABLET PO PRN (08:48)
[2018-01-17] MEDS: Nicotine 7 MG PATCH.TD24 TD SCH (08:48)
[2018-01-17] MEDS: MethylPREDNISolone 40 MG/ML VIAL IVP SCH ×2 (08:50→17:36)
[2018-01-17] MEDS: Piperacillin/Tazobactam 3.375 GM in 0.9 % Sodium Chloride Mini Bag 100 ML IVPB SCH ×4 (08:50→23:54)
[2018-01-17] MEDS: Azithromycin 500 MG in D5% in Water 250 ML IVPB SCH (11:21)
[2018-01-17] MEDS: Acetaminophen 325 MG TABLET PO PRN (11:22)
--- NOTE | 2018-01-17 11:38 | Internal Med Progress Note ---
Hospitalist Progress Note - Encounter Date of Encounter: 01/17/18 Time of Encounter: 10:37 - Subjective Interval History: No acute events. Patient states breathing stable. Denies fevers/chills, chest pain. Does have some complaint of extremity edema. - Exam Vitals: Temp Pulse Resp BP Pulse Ox 98.6 F 87 18 125/89 96 01/17/18 11:25 01/17/18 11:25 01/17/18 11:25 01/17/18 11:01/17/18 11:25 Exam: General: AAOx3 HEENT: pupils equal, round, moist mucus membranes, poor dentition Neck: supple, trachea midline CVS: RRR Lungs: no resp distress, normal work of breathing on room air, + rhonchi, diminished breath sounds, no wheezing Abdomen:Soft, non-tender, non-distended, + bowel sounds - Assessment and Plan (1) Acute respiratory failure with hypoxia Current Visit: Yes Status: Acute Assessment and Plan: 2/2 large right pleural effusions and Pneumonia, suspicious for aspiration pna, Empyema, organism uk at this time -supplemental O2, weaning as able -Emergent IR thoracentesis and chest tube placement given CT chest findings with mediastinal shift in ED -CTA did not suggest traumatic effusion / Chest tube drainage is NOT bloody -treatment of pneumonia/empyema -pulm following, recommendations appreciated. Chest tube management as per Pulm (2) Severe sepsis Current Visit: Yes Assessment and Plan: as evidenced by HR 116, RR 26, BP drop from 132/65 to 110/67 , WBC 40, Lactic acid 3 and suspected pneumonia -s/p 2L boluses in ED per sepsis procotol, trended lactate and down to 1.8 now -CXR new moderate to large plueral and parenchymal opacity lower 2/3 right lung -CTA Chest: 1.There is a large multiloculated right pleural effusion which results in significant lung atelectasis and mediastinal/cardiac shift to the left. This could represent posttraumatic loculated effusion. There is no internal gas foci though empyema cannot be excluded. 2.Extensive right lung consolidation with right lower lobe bronchial opacification and hypodense changes which suggest possible aspiration. There are multifocal basal circumscribed fluid collections which could represent developing pulmonary abscess. 3. Trace simple left pleural effusion with mild patchy perihilar consolidation. -CT A/P without acute findings / signs of infection, ROS neg for gi symptoms -Left otitis media on exam -bl cxs ngtd -sputum cx gpc, gnr and yeast , legionella and strp ag neg -thoracentesis fluid studies pending: pleural fluid gram stain many wbcs, culture ngtd, anaerobic cx ngtd -vanc + zosyn -01/13 - lactate--down to 2, -leukocytosis down to 20s, afebrile, normal HR, BP low 100s/50-60s -01/14 worsening pna on imaging, WBC increase- Azithro added by pulm - 01/17: has been clinically improving, and WBC decreased as well. (3) Pleural effusion Current Visit: Yes Status: Acute Assessment and Plan: -fluid studies as above -Chest tube management as per Pulmonology (4) Pneumonia Current Visit: Yes Status: Acute Assessment and Plan: right loculated pleural effusions and Pneumonia, Empyema, organism uk at this time Worsening on imaging 01/14, azithro added afterwords -standing and prn nebs -IV steroids -legionella, strep ag neg -viral resp panel neg -pulm is following -01/13 chest tube with 1300 cc purulent fluid overnight, cont chest tube as per pulm, CXR today with pneumothorax c/w pneumothorax ex vacuo , will cont to monitor for trapped lung and any need for surgical intervention -01/14 worsening multi focal pna on cxr, prgression to let chest--CT chest with worsening left opacities azithro added, induced sputum x3, pulm considering bronchoscopy possibly tomorrow, no intrapleural tpa needed today, maintain chest tube to suction -vanc + zosyn empirically to cover aspiration, + azithro 01/14 MRSA screen pending. (5) Hypokalemia Current Visit: Yes Status: Resolved Assessment and Plan: K+ 2.8 in eD, resolved with repeated oral repletion -cont oral replete -mag at goal -tele -cont to monitor lytes (6) Elevated troponin Current Visit: Yes Status: Acute Assessment and Plan: Suspect Type II WI in setting of Severe Sepsis, Heart score 3, asx, working to rule out endocarditis or pericardial infection given empyema -trop 0.36 then peak at 5.5 - sinus tachy in ED and EKG without acute ischemic changes , 01/12 repeat EKG with new twi I, II avl -cards consulted-hep gtt started (trop improvement prior to achieving therapeutic range) -cont asa, lipid panel with low HDL otherwise wnl -tele -tsh wnl, a1c pending -bnp 462 -stat echo: LVEF 65%. Normal left ventricular diastolic function. Normal right ventricular structure and function. Mildly dilated left atrium. No significant valvular abnormality No evidence of pulmonary hypertension. -UDS neg- as per cards recs if neg cocaine start low dose BB but BPs have not yet permitted initiation -seen in eval by cards 01/13, believe trop of 5 was outlier, dc'd hep gtt, cocaine neg uds-will dc asa (7) History of recent trauma Current Visit: Yes Status: Acute Assessment and Plan: CT chest and A/P - no pneumothorax, no evidence of hemorrhage, liver laceration or other signs of traumatic injury (8) Hypoalbuminemia Current Visit: Yes Status: Acute Assessment and Plan: nutrition consulted (9) Left acute otitis media Current Visit: Yes Status: Acute Assessment and Plan: abx as above (10) Hepatitis C virus Current Visit: Yes Status: Chronic Assessment and Plan: on chart review + Hep c testing in past HIV neg in past fu with pcp outpt (11) Depression Current Visit: No Status: Chronic Assessment and Plan: stable previously on medication, not on any now (12) Anemia Current Visit: Yes Status: Acute Assessment and Plan: Present on admit with hgb 10.6, so down tredn this admission no signs of bleeding all 3 cell lines decreased suspect decrease is from ivfs and repeat blood draws -will cont to monitor hgb and for any signs of bleeding DVT Prophylaxis: hep sq - Time Spent with Patient Total time spent is greater than 50% in coordination of care (as documented) at patient's floor/unit and/or counseling patient: Internal Medicine: Result - Labs CBC & Chem 7: 01/17/18 04:53 01/17/18 04:53 Labs: Short CBC 01/17/18 Range/Units 04:53 WBC 21.0 H (4.3-11.1) K/mcL Hgb 9.7 L (11.5-15.4) g/dL Hct 29.7 L (35.3-44.9) % Plt Count 467 H (140-400) K/mcL Neutrophils # 17.1 H (1.6-8.9) K/mcL BMP 01/17/18 04:53 Sodium 140 Potassium 3.4 L Chloride 106 Carbon Dioxide 25 BUN 9 Creatinine 0.48 L Glucose 121 H Calcium 8.3 L - ABG Interpretation ABG results: PT/INR, D-dimer PT 10.5 Seconds (9.4-12.1) 01/15/18 04:21 - Impressions Impressions Chest CT 01/16/18 18:30 IMPRESSION: Status post right-sided chest tube placement. Significant interval reduction of right-sided pleural effusion. Right-sided pneumothorax noted with chest tube in position Diffuse airspace disease is noted bilaterally. This is indeterminate may represent pulmonary edema. Rapidly developing pneumonia or aspiration not excluded Multiple lucencies in the right lung base may be related to areas of developing cavitation or necrosis. Developing small effusion on the left. D/ / Silas Guadalupe / Silas Guadalupe Interpreting Provider: Silas Guadaluep Consult Discharge Plan - Plan Referrals: Lewis Shin [Resident] - 01/31/18 2:00 pm (YOU WILL RECEIVE IN THE MAIL A NEW PATIENT PACKET PLEASE FILL THIS OUT AND TAKE IT WITH YOU TO YOUR APPOINTMENT. PLEASE TAKE PICTURE ID, INSURANCE CARD, AND A LIST OF ALL MEDCATIONS INCLUDING OVER THE COUNTER. THIS OFFICE DOES NOT GIVE OUT CONTROLLED MEDICATION. IF YOU NEED TO CANCEL PLEASE CALL [phone] 24 HOURS PRIOR TO YOUR APPOINTMENT) (4) Pneumonia Qualifiers: Pneumonia type: due to unspecified organism Laterality: bilateral Lung location: unspecified part of lung Qualified Code(s): J18.9 - Pneumonia, unspecified organism (10) Hepatitis C virus Qualifiers: Viral hepatitis chronicity: unspecified Hepatic coma status: without hepatic coma Qualified Code(s): B19.20 - Unspecified viral hepatitis C without hepatic coma (11) Depression Qualifiers: Depression Type: unspecified Qualified Code(s): F32.9 - Major depressive disorder, single episode, unspecified (12) Anemia Qualifiers: Anemia type: unspecified type Qualified Code(s): D64.9 - Anemia, unspecified
[2018-01-17] MEDS: Melatonin 3 MG TABLET PO PRN (21:52)
[2018-01-18] MEDS: Ipratropium/Albuterol Neb 3 ML IH SCH ×3 (00:03→07:52)
[2018-01-18] MEDS: *HR* OxyCODONE Immed Rel 5 MG TABLET PO PRN ×2 (03:58→21:50)
[2018-01-18 04:41] LABS: Hemoglobin 9.4 g/dL (11.5-15.4); Mean Corpuscular HGB Conc 32.4 g/dL (31.6-35.5); Mean Corpuscular Hemoglobin 28.1 pg (28.0-33.3); Mean Corpuscular Volume 86.8 fL (83.0-100.0); Mean Platelet Volume 9.7 fL (9.4-12.4); Platelet Count 522 K/mcL (140-400); Red Blood Count 3.34 M/mcL (3.82-4.97); Red Cell Distribution Width 14.5 % (11.5-14.5)
[2018-01-18 05:03] LABS: BUN/Creatinine Ratio 28 (6-26); Blood Urea Nitrogen 13 mg/dL (6-20); Calcium 8.3 mg/dL (8.6-10.3); Carbon Dioxide 28 mEq/L (23-29); Chloride 103 mEq/L (98-107); Glucose 93 mg/dL (70-105); Osmolality,Calculated 286 (280-300); Potassium 3.2 mEq/L (3.5-5.1); Sodium 138 mEq/L (136-145); eGFR For Non-African Americans > 60 (> 60)
[2018-01-18 05:12] LABS: Lymphocytes # 2.2 K/mcL (0.6-4.6); Neutrophils # 12.9 K/mcL (1.6-8.9)
[2018-01-18 05:13] LABS: Plasma Cells Present (Not Present)
[2018-01-18 05:14] LABS: Platelet Estimate Increased (Normal)
[2018-01-18] MEDS: MethylPREDNISolone 40 MG/ML VIAL IVP SCH (05:42)
[2018-01-18] MEDS: *HR* Heparin 5,000 UNIT/ML VIAL SQ SCH ×3 (05:44→21:50)
[2018-01-18] MEDS ORDERED: Ipratropium/Albuterol Neb 3 ML IH PRN (08:16)
[2018-01-18] MEDS: Piperacillin/Tazobactam 3.375 GM in 0.9 % Sodium Chloride Mini Bag 100 ML IVPB SCH ×2 (08:18→16:58)
[2018-01-18] MEDS: Nicotine 7 MG PATCH.TD24 TD SCH (08:18)
--- NOTE | 2018-01-18 08:20 | Pulmonology Progress Note ---
<Basilio Dickey - Last Filed: 01/18/18 16:55> Date of Encounter: 01/18/18 Time of Encounter: 09:30 Assessment and Plan (1) Acute respiratory failure with hypoxia Current Visit: Yes Status: Acute - likely due to her multifocal oneumonia, patient is s/p bronchoscopy with BAL, cultures pending -Currently patient is breathing on 2 L nasal cannula satting at 96%. - Continue to monitor (2) Empyema Current Visit: Yes Status: Acute - Likely due to her pneumonia. She is s/p chest tube on suction with no evidence of any drainage for the last 24 hours. - WBC on admission was 30.1 currnetly trending down 28.2- > 21 -> 15.7 -Patient currently on vancomycin, and Zosyn (3) Multifocal pneumonia Current Visit: Yes Status: Acute -Patient presented with extensive multifocal pneumonia shown the chest CT s/p bronchoscopy and BAL - Continues to be on broad-spectrum antibiotics Zosyn and vancomycin, continues to be 40 mg methylprednisone. WBC has been trending down, breath sounds mildly diminished on physical exam, with no wheezing - Continue to monitor, de-escalate antibiotics after culture sensitivities Subjective Principal diagnosis: Empyema Interval history: No acute events overnight. Patient endorses no shortness of breath, chest pain or palpitations. Her chest tube has minimal drainage, with no evidence of any air leak on coughing. currently she is on 2 L nasal cannula satting at 98%. She continues to be on Zosyn, vancomycin for her multifocal pneumonia. Her azithromycin has been discontinued. Objective PUL Vital signs: Last Vital Signs Temp 98.7 F 01/18/18 03:12 Pulse 75 01/18/18 03:12 Resp 18 01/18/18 07:52 BP 145/90 01/18/18 03:12 Pulse Ox 96 01/18/18 07:52 General appearance: no acute distress Effort: normal Auscultation: bilateral: diminished breath sounds (mildly) Percussion: bilateral: not dull Tactile fremitus: bilateral: normal Cardiovascular: regular rate and rhythm (No gallops, murmurs or rubs) Gastrointestinal: soft, non-tender, non-distended Results - Laboratory Findings CBC and BMP: 01/18/18 04:13 01/18/18 04:13 PT/INR, D-dimer PT 10.5 Seconds (9.4-12.1) 01/15/18 04:21 Abnormal lab findings: Abnormal lab results WBC 15.7 K/mcL (4.3-11.1) H 01/18/18 04:13 RBC 3.34 M/mcL (3.82-4.97) L 01/18/18 04:13 Hgb 9.4 g/dL (11.5-15.4) L 01/18/18 04:13 Hct 29.0 % (35.3-44.9) L 01/18/18 04:13 Plt Count 522 K/mcL (140-400) H 01/18/18 04:13 Immature Gran % 10.1 % (0-4) H 01/17/18 04:53 Metamyelocytes % 2.0 % (0) H 01/15/18 04:21 Myelocytes % 4.0 % (0) H 01/18/18 04:13 Neutrophils # 12.9 K/mcL (1.6-8.9) H 01/18/18 04:13 Plasma Cells Present (Not Present) A 01/18/18 04:13 Toxic Granulation Present (Not Present) A 01/16/18 04:29 Platelet Estimate Increased (Normal) H 01/18/18 04:13 Large Platelets Present (Not Present) A 01/15/18 04:21 Heparin Anti-Xa, Unfract 0.15 IU/mL (0.30-0.70) L 01/13/18 16:15 Potassium 3.2 mEq/L (3.5-5.1) L 01/18/18 04:13 Creatinine 0.47 mg/dL (0.60-1.20) L 01/18/18 04:13 BUN/Creatinine Ratio 28 (6-26) H 01/18/18 04:13 POC Glucose 143 mg/dL (70-99) H 01/15/18 11:20 Calcium 8.3 mg/dL (8.6-10.3) L 01/18/18 04:13 Total Bilirubin 0.2 mg/dL (0.3-1.0) L 01/13/18 03:10 AST 10 Units/L (13-39) L 01/13/18 03:10 Alkaline Phosphatase 130 Units/L (34-104) H 01/13/18 03:10 B-Natriuretic Peptide 462 pg/mL (Less than 100) H 01/12/18 16:09 Serum Total Protein 5.7 g/dL (6.4-8.9) L 01/13/18 03:10 Albumin 2.5 g/dL (3.5-5.7) L 01/13/18 03:10 Albumin/Globulin Ratio 0.8 (1.1-2.2) L 01/13/18 03:10 HDL Cholesterol 10 mg/dL (40-59) L 01/13/18 03:10 Cholesterol/HDL Ratio 8.2 (0-4.9) H 01/13/18 03:10 Lipase 5 Units/L (11-82) L 01/12/18 11:33 Ur Squamous Epith Cells Many per lpf (None-Few) H 01/12/18 19:10 Fluid Appearance Slightly Hazy (Clear) A 01/15/18 13:51 Pleural Appearance Hazy (Clear) A 01/12/18 15:16 Pleural Tot Nuc Cell 8698 TNC/mcL (0-1000) H 01/12/18 15:16 Nasal Screen MRSA (PCR) Positive (Negative) A 01/17/18 12:10 U Benzodiazepines Scrn Positive ng/mL (Gdirmx=748) H 01/12/18 19:10 - Microbiology Findings Microbiology Findings: Microbiology, Last 48 Hours 01/13/18 07:07 Blood Culture - Final Peripheral Venipuncture No growth. Final report. 01/13/18 07:13 Blood Culture - Final Peripheral Venipuncture No growth. Final report. 01/15/18 13:51 Respiratory Culture - Final Left Lower Lobe Lung 01/15/18 13:51 Respiratory Culture - Final Right Middle Lobe Lung 01/13/18 21:35 Sputum Culture - Final Sputum 01/15/18 13:51 Acid Fast Stain - Final Right Middle Lobe Lung 01/15/18 13:51 Acid Fast Stain - Final Left Lower Lobe Lung - Clinical Findings Intake & Output: Intake & Output 01/17/18 01/18/18 01/18/18 23:59 07:59 15:59 Intake Total 410 / 410 570 / 570 Output Total 400 / 400 900 / 900 Balance -330 / -330 Weight 57.2 kg Consult Discharge Plan - Plan Referrals: Lewis Shin [Resident] - 01/31/18 2:00 pm (YOU WILL RECEIVE IN THE MAIL A NEW PATIENT PACKET PLEASE FILL THIS OUT AND TAKE IT WITH YOU TO YOUR APPOINTMENT. PLEASE TAKE PICTURE ID, INSURANCE CARD, AND A LIST OF ALL MEDCATIONS INCLUDING OVER THE COUNTER. THIS OFFICE DOES NOT GIVE OUT CONTROLLED MEDICATION. IF YOU NEED TO CANCEL PLEASE CALL [phone] 24 HOURS PRIOR TO YOUR APPOINTMENT) <Colleen West - Last Filed: 01/18/18 17:13> Date of Encounter: 01/18/18 Assessment and Plan (1) Pneumonia Current Visit: Yes Status: Acute Qualifiers: Pneumonia type: due to unspecified organism Laterality: bilateral Lung location: unspecified part of lung Qualified Code(s): J18.9 - Pneumonia, unspecified organism (2) Acute respiratory failure with hypoxia Current Visit: Yes Status: Acute (3) Empyema Current Visit: Yes Status: Acute Objective PUL Vital signs: Last Vital Signs Temp 98.5 F 01/18/18 16:31 Pulse 82 01/18/18 12:00 Resp 18 01/18/18 16:31 BP 138/93 01/18/18 16:31 Pulse Ox 95 01/18/18 16:31 Results - Laboratory Findings CBC and BMP: 01/18/18 04:13 01/18/18 04:13 PT/INR, D-dimer PT 10.5 Seconds (9.4-12.1) 01/15/18 04:21 Abnormal lab findings: Abnormal lab results WBC 15.7 K/mcL (4.3-11.1) H 01/18/18 04:13 RBC 3.34 M/mcL (3.82-4.97) L 01/18/18 04:13 Hgb 9.4 g/dL (11.5-15.4) L 01/18/18 04:13 Hct 29.0 % (35.3-44.9) L 01/18/18 04:13 Plt Count 522 K/mcL (140-400) H 01/18/18 04:13 Immature Gran % 10.1 % (0-4) H 01/17/18 04:53 Metamyelocytes % 2.0 % (0) H 01/15/18 04:21 Myelocytes % 4.0 % (0) H 01/18/18 04:13 Neutrophils # 12.9 K/mcL (1.6-8.9) H 01/18/18 04:13 Plasma Cells Present (Not Present) A 01/18/18 04:13 Toxic Granulation Present (Not Present) A 01/16/18 04:29 Platelet Estimate Increased (Normal) H 01/18/18 04:13 Large Platelets Present (Not Present) A 01/15/18 04:21 Heparin Anti-Xa, Unfract 0.15 IU/mL (0.30-0.70) L 01/13/18 16:15 Potassium 3.2 mEq/L (3.5-5.1) L 01/18/18 04:13 Creatinine 0.47 mg/dL (0.60-1.20) L 01/18/18 04:13 BUN/Creatinine Ratio 28 (6-26) H 01/18/18 04:13 POC Glucose 143 mg/dL (70-99) H 01/15/18 11:20 Calcium 8.3 mg/dL (8.6-10.3) L 01/18/18 04:13 Total Bilirubin 0.2 mg/dL (0.3-1.0) L 01/13/18 03:10 AST 10 Units/L (13-39) L 01/13/18 03:10 Alkaline Phosphatase 130 Units/L (34-104) H 01/13/18 03:10 B-Natriuretic Peptide 462 pg/mL (Less than 100) H 01/12/18 16:09 Serum Total Protein 5.7 g/dL (6.4-8.9) L 01/13/18 03:10 Albumin 2.5 g/dL (3.5-5.7) L 01/13/18 03:10 Albumin/Globulin Ratio 0.8 (1.1-2.2) L 01/13/18 03:10 HDL Cholesterol 10 mg/dL (40-59) L 01/13/18 03:10 Cholesterol/HDL Ratio 8.2 (0-4.9) H 01/13/18 03:10 Lipase 5 Units/L (11-82) L 01/12/18 11:33 Ur Squamous Epith Cells Many per lpf (None-Few) H 01/12/18 19:10 Fluid Appearance Slightly Hazy (Clear) A 01/15/18 13:51 Pleural Appearance Hazy (Clear) A 01/12/18 15:16 Pleural Tot Nuc Cell 8698 TNC/mcL (0-1000) H 01/12/18 15:16 Nasal Screen MRSA (PCR) Positive (Negative) A 01/17/18 12:10 U Benzodiazepines Scrn Positive ng/mL (Yrhlye=142) H 01/12/18 19:10 - Microbiology Findings Microbiology Findings: Microbiology, Last 48 Hours 01/13/18 07:07 Blood Culture - Final Peripheral Venipuncture No growth. Final report. 01/13/18 07:13 Blood Culture - Final Peripheral Venipuncture No growth. Final report. 01/15/18 13:51 Respiratory Culture - Final Left Lower Lobe Lung 01/15/18 13:51 Respiratory Culture - Final Right Middle Lobe Lung 01/13/18 21:35 Sputum Culture - Final Sputum 01/15/18 13:51 Acid Fast Stain - Final Right Middle Lobe Lung 01/15/18 13:51 Acid Fast Stain - Final Left Lower Lobe Lung - Clinical Findings Intake & Output: Intake & Output 01/18/18 01/18/18 01/18/18 07:59 15:59 23:59 Intake Total 570 / 570 700 / 700 250 / 250 Output Total 900 / 900 3600 / 3600 700 / 700 Balance -330 / -330 -2900 / -2900 -450 / -450 Weight 57.2 kg - Attending Attestation I saw and evaluated this patient and my medical decision-making was reviewed with the Resident Physician. I agree with the documented findings, disposition and treatment plan as described except to the extent set forth below. We independently had [id number] contact with patient Patient seen and examined at bedside Labs, radiology, chart personally reviewed. Chest tube to water seal and repeated chest x-ray in the morning we will remove the chest tube tomorrow . Multifocal pneumonia will de-escalate antibiotics to continue Zosyn probably she will go home on 4 weeks of Augmentin.. Wean down FiO2 most likely patient will be discharged home on some oxygen on exertion we will see her in the clinic in 6-8 weeks.
--- NOTE | 2018-01-18 08:32 | Internal Med Progress Note ---
Hospitalist Progress Note - Encounter Date of Encounter: 01/18/18 Time of Encounter: 08:27 - Subjective Interval History: No acute events. Patient states she feels really good, and also that edema improved after Lasix. She denies SOB, chest pain, fevers/chills, n/v. - Exam Vitals: Temp Pulse Resp BP Pulse Ox 99 F 60 18 139/101 96 01/18/18 07:00 01/18/18 07:00 01/18/18 07:52 01/18/18 07:00 01/18/18 07:52 Exam: General: AAOx3 HEENT: pupils equal, round, moist mucus membranes, poor dentition Neck: supple, trachea midline CVS: RRR Lungs: no resp distress, normal work of breathing on room air, + rhonchi, diminished breath sounds, no wheezing Abdomen:Soft, non-tender, non-distended, + bowel sounds Ext: lower extremity edema near resolved - Assessment and Plan (1) Acute respiratory failure with hypoxia Current Visit: Yes Status: Acute Assessment and Plan: 2/2 large right pleural effusions and Pneumonia, suspicious for aspiration pna, Empyema, organism uk at this time -supplemental O2, weaning as able -Emergent IR thoracentesis and chest tube placement given CT chest findings with mediastinal shift in ED -CTA did not suggest traumatic effusion / Chest tube drainage is NOT bloody -Continue treatment of pneumonia/empyema -Chest tube management as per Pulm (2) Severe sepsis Current Visit: Yes Assessment and Plan: as evidenced by HR 116, RR 26, BP drop from 132/65 to 110/67 , WBC 40, Lactic acid 3 and suspected pneumonia -s/p 2L boluses in ED per sepsis procotol, trended lactate and down to 1.8 now -CXR new moderate to large plueral and parenchymal opacity lower 2/3 right lung -CTA Chest: 1.There is a large multiloculated right pleural effusion which results in significant lung atelectasis and mediastinal/cardiac shift to the left. This could represent posttraumatic loculated effusion. There is no internal gas foci though empyema cannot be excluded. 2.Extensive right lung consolidation with right lower lobe bronchial opacification and hypodense changes which suggest possible aspiration. There are multifocal basal circumscribed fluid collections which could represent developing pulmonary abscess. 3. Trace simple left pleural effusion with mild patchy perihilar consolidation. -CT A/P without acute findings / signs of infection, ROS neg for gi symptoms -bl cxs ngtd -sputum cx gpc, gnr and yeast , legionella and strp ag neg -thoracentesis fluid studies : pleural fluid gram stain many wbcs, culture ngtd , anaerobic cx ngtd -vanc + zosyn Resolved. (3) Pleural effusion Current Visit: Yes Status: Acute Assessment and Plan: -fluid studies as above -Chest tube management as per Pulmonology (4) Pneumonia Current Visit: Yes Status: Acute Assessment and Plan: right loculated pleural effusions and Pneumonia, Empyema, organism uk at this time Worsening on imaging 01/14, azithro added afterwords -standing and prn nebs -IV steroids -01/13 chest tube with 1300 cc purulent fluid overnight, cont chest tube as per pulm, CXR today with pneumothorax c/w pneumothorax ex vacuo , will cont to monitor for trapped lung and any need for surgical intervention -vanc + zosyn empirically to cover aspiration, + azithro 01/14 MRSA screen positive, Vanc is continued. (5) Hypokalemia Current Visit: Yes Status: Resolved Assessment and Plan: K+ 2.8 in ED, resolved with repeated oral repletion Replace as needed. (6) Elevated troponin Current Visit: Yes Status: Acute Assessment and Plan: Suspect Type II VT in setting of Severe Sepsis, Heart score 3, asx, working to rule out endocarditis or pericardial infection given empyema -trop 0.36 then peak at 5.5 - sinus tachy in ED and EKG without acute ischemic changes , 01/12 repeat EKG with new twi I, II avl -cards consulted-hep gtt started (trop improvement prior to achieving therapeutic range) -cont asa, lipid panel with low HDL otherwise wnl -tele -tsh wnl, a1c pending -bnp 462 -stat echo: LVEF 65%. Normal left ventricular diastolic function. Normal right ventricular structure and function. Mildly dilated left atrium. No significant valvular abnormality No evidence of pulmonary hypertension. -UDS neg- as per cards recs if neg cocaine start low dose BB but BPs have not yet permitted initiation -seen in eval by cards 01/13, believe trop of 5 was outlier, dc'd hep gtt, cocaine neg uds-will dc asa (7) History of recent trauma Current Visit: Yes Status: Acute Assessment and Plan: CT chest and A/P - no pneumothorax, no evidence of hemorrhage, liver laceration or other signs of traumatic injury (8) Hypoalbuminemia Current Visit: Yes Status: Acute Assessment and Plan: nutrition consulted (9) Left acute otitis media Current Visit: Yes Status: Acute Assessment and Plan: abx as above (10) Hepatitis C virus Current Visit: Yes Status: Chronic Assessment and Plan: on chart review + Hep c testing in past HIV neg in past fu with pcp outpt (11) Depression Current Visit: No Status: Chronic Assessment and Plan: stable previously on medication, not on any now (12) Anemia Current Visit: Yes Status: Acute Assessment and Plan: Present on admit with hgb 10.6, so down tredn this admission no signs of bleeding all 3 cell lines decreased suspect decrease is from ivfs and repeat blood draws Stable DVT Prophylaxis: hep sq - Time Spent with Patient Total time spent is greater than 50% in coordination of care (as documented) at patient's floor/unit and/or counseling patient: Internal Medicine: Result - Labs CBC & Chem 7: 01/18/18 04:13 01/18/18 04:13 Labs: Short CBC 01/18/18 Range/Units 04:13 WBC 15.7 H (4.3-11.1) K/mcL Hgb 9.4 L (11.5-15.4) g/dL Hct 29.0 L (35.3-44.9) % Plt Count 522 H (140-400) K/mcL Neutrophils # 12.9 H (1.6-8.9) K/mcL BMP 01/18/18 04:13 Sodium 138 Potassium 3.2 L Chloride 103 Carbon Dioxide 28 BUN 13 Creatinine 0.47 L Glucose 93 Calcium 8.3 L - ABG Interpretation ABG results: PT/INR, D-dimer PT 10.5 Seconds (9.4-12.1) 01/15/18 04:21 Consult Discharge Plan - Plan Referrals: Lewis Shin [Resident] - 01/31/18 2:00 pm (YOU WILL RECEIVE IN THE MAIL A NEW PATIENT PACKET PLEASE FILL THIS OUT AND TAKE IT WITH YOU TO YOUR APPOINTMENT. PLEASE TAKE PICTURE ID, INSURANCE CARD, AND A LIST OF ALL MEDCATIONS INCLUDING OVER THE COUNTER. THIS OFFICE DOES NOT GIVE OUT CONTROLLED MEDICATION. IF YOU NEED TO CANCEL PLEASE CALL [phone] 24 HOURS PRIOR TO YOUR APPOINTMENT) (4) Pneumonia Qualifiers: Pneumonia type: due to unspecified organism Laterality: bilateral Lung location: unspecified part of lung Qualified Code(s): J18.9 - Pneumonia, unspecified organism (10) Hepatitis C virus Qualifiers: Viral hepatitis chronicity: unspecified Hepatic coma status: without hepatic coma Qualified Code(s): B19.20 - Unspecified viral hepatitis C without hepatic coma (11) Depression Qualifiers: Depression Type: unspecified Qualified Code(s): F32.9 - Major depressive disorder, single episode, unspecified (12) Anemia Qualifiers: Anemia type: unspecified type Qualified Code(s): D64.9 - Anemia, unspecified
[2018-01-18] MEDS ORDERED: Furosemide 40 MG/4 ML VIAL IVP ONE (08:40)
[2018-01-18 10:43] LABS: Influenza A PCR Body Fluid NOT DETECTED; Influenza B PCR Body Fluid NOT DETECTED; RVP Body Fluid Source RML
[2018-01-18] MEDS: Azithromycin 500 MG in D5% in Water 250 ML IVPB SCH (11:10)
[2018-01-18] MEDS: Acetaminophen 325 MG TABLET PO PRN (11:11)
[2018-01-18 11:43] LABS: RSV PCR Body Fluid NOT DETECTED
[2018-01-18 14:26] LABS: Influenza A PCR Body Fluid NOT DETECTED; Influenza B PCR Body Fluid NOT DETECTED; RVP Body Fluid Source LLL
[2018-01-18 14:55] LABS: RSV PCR Body Fluid NOT DETECTED
[2018-01-18] MEDS: Melatonin 3 MG TABLET PO PRN (21:58)
[2018-01-19] MEDS: Piperacillin/Tazobactam 3.375 GM in 0.9 % Sodium Chloride Mini Bag 100 ML IVPB SCH ×2 (00:48→08:21)
[2018-01-19] MEDS: *HR* HYDROcodone/Acet 5/325 mg TABLET PO PRN (01:41)
[2018-01-19] MEDS ORDERED: Ketorolac 30 MG/ML VIAL IVP ONE (04:18)
[2018-01-19] MEDS: *HR* OxyCODONE Immed Rel 5 MG TABLET PO PRN (04:31)
[2018-01-19 04:55] VITALS: BP 135/84
[2018-01-19 05:37] LABS: Basophils # 0.1 K/mcL (0.0-0.2); Basophils % 0.8 %; Eosinophils # 0.1 K/mcL (0.0-0.6); Eosinophils % 0.8 %; Hematocrit 29.8 % (35.3-44.9); Hemoglobin 9.7 g/dL (11.5-15.4); Immature Granulocytes % 7.4 % (0-4); Lymphocytes # 4.8 K/mcL (0.6-4.6); Mean Corpuscular HGB Conc 32.6 g/dL (31.6-35.5); Mean Corpuscular Hemoglobin 28.3 pg (28.0-33.3); Mean Corpuscular Volume 86.9 fL (83.0-100.0); Mean Platelet Volume 9.4 fL (9.4-12.4); Monocytes # 0.9 K/mcL (0.0-1.3); Monocytes % 5.3 %; Neutrophils # 9.9 K/mcL (1.6-8.9); Platelet Count 593 K/mcL (140-400); Red Blood Count 3.43 M/mcL (3.82-4.97); Segmented Neutrophils % 57.7 %
[2018-01-19 05:48] LABS: BUN/Creatinine Ratio 27 (6-26); Blood Urea Nitrogen 14 mg/dL (6-20); Calcium 8.4 mg/dL (8.6-10.3); Carbon Dioxide 31 mEq/L (23-29); Chloride 103 mEq/L (98-107); Glucose 81 mg/dL (70-105); Osmolality,Calculated 288 (280-300); Potassium 3.8 mEq/L (3.5-5.1); Sodium 139 mEq/L (136-145); eGFR For Non-African Americans > 60 (> 60)
[2018-01-19] MEDS: *HR* Heparin 5,000 UNIT/ML VIAL SQ SCH (06:20)
[2018-01-19] MEDS: Nicotine 7 MG PATCH.TD24 TD SCH (08:20)
[2018-01-19] MEDS ORDERED: predniSONE 20 MG TABLET PO SCH (09:00)
[2018-01-19] MEDS ORDERED: Aminoglycoside Consult 1 EACH MC ONE (09:04)
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
--- NOTE | 2018-01-19 15:27 | Event Note ---
Date of Encounter: 01/19/18 Time of Encounter: 08:00 Took the chest tube out patient tolerated the procedure well patient doesnt have any complaints . To repeat CXR in 4 hrs to see any worsening of pneumothorax . On discharge patient should be sent home on PO Augmentin for 4 weeks with probiotics and 2 week of steroids and outpatient pulmonology
== END 2018-01-19 09:05 | disposition left against medical advice (07) | DRG 720 ==
LOC: EMEROOARM 09:54 → 2ANU 09:54 → SUATTDRO 16:31 → 2ANU 17:04 → 2NNU 18:20
PROVIDERS: ADMIT Internal Medicine; ATTEND Internal Medicine

== ENCOUNTER 2019-11-13 16:11 | Observation (INO) ==
[2019-11-13 17:49] LABS: Basophils % 0.2 %; Eosinophils # 0.1 K/mcL (0.0-0.6); Eosinophils % 0.2 %; Hematocrit 37.6 % (35.3-44.9); Hemoglobin 12.4 g/dL (11.5-15.4); Immature Granulocytes % 0.6 % (0-4); Lymphocytes # 1.2 K/mcL (0.6-4.6); Lymphocytes % 4.7 %; Mean Corpuscular Hemoglobin 29.3 pg (28.0-33.3); Mean Corpuscular Volume 88.9 fL (83.0-100.0); Monocytes # 0.9 K/mcL (0.0-1.3); Monocytes % 3.7 %; Platelet Count 362 K/mcL (140-400); Red Blood Count 4.23 M/mcL (3.82-4.97); Red Cell Distribution Width 12.8 % (11.5-14.5); Segmented Neutrophils % 90.6 %; White Blood Count 24.7 K/mcL (4.3-11.1)
[2019-11-13 17:51] LABS: Bacteria,Urine Few per hpf (None-Few); Bilirubin,Urine Negative (Negative); Blood,Urine Trace (Negative); Clarity,Urine Turbid (Clear); Color,Urine Light-Yellow (Yellow); Glucose,Urine (UA) Normal (Normal); Hyaline Casts,Urine Few per lpf (None Seen); Ketones,Urine Negative (Negative); Leukocyte Esterase,Urine Moderate (Negative); Mucus,Urine Few per lpf (None-Few); Nitrite,Urine Negative (Negative); Protein,Urine 50 mg/dL (Neg-Trace); Specific Gravity,Urine 1.012 (1.010-1.025); Squamous Epithelial Cell,Urine Many per hpf (None-Few); Urobilinogen,Urine Normal (Normal); WBC,Urine 30-50 per hpf (0-3)
[2019-11-13 17:53] LABS: Basophils # 0.1 K/mcL (0.0-0.2); Neutrophils # 22.4 K/mcL (1.6-8.9)
[2019-11-13 18:00] LABS: Alanine Aminotransferase 24 Units/L (7-52); Albumin 3.9 g/dL (3.5-5.7); Albumin/Globulin Ratio 1.1 (1.1-2.2); Alkaline Phosphatase 100 Units/L (34-104); Aspartate Amino Transferase 18 Units/L (13-39); BUN/Creatinine Ratio 5 (6-26); Bilirubin,Direct 0.1 mg/dL (0.0-0.2); Bilirubin,Indirect 0.1 mg/dL (0.0-1.0); Bilirubin,Total 0.2 mg/dL (0.3-1.0); Blood Urea Nitrogen 3 mg/dL (6-20); Calcium 8.8 mg/dL (8.6-10.3); Carbon Dioxide 21 mEq/L (23-29); Chloride 101 mEq/L (98-107); Globulin 3.6 g/dL (2.4-3.5); Glucose 85 mg/dL (70-105); Lipase 9 Units/L (11-82); Osmolality,Calculated 270 (280-300); Potassium 3.3 mEq/L (3.5-5.1); Sodium 132 mEq/L (136-145); Total Protein 7.5 g/dL (6.4-8.9); eGFR For African Americans > 60 (> 60); eGFR For Non-African Americans > 60 (> 60)
[2019-11-13 18:14] LABS: Platelet Estimate Normal (Normal)
[2019-11-13] MEDS ORDERED: cefTRIAXone 1,000 MG in Water for inj. (sterile) 10 ML IVP ONE (19:30)
[2019-11-13] MEDS ORDERED: 0.9 % Sodium Chloride 1,000 ML IVC ONE (21:11)
[2019-11-13 22:30] LABS: Magnesium 1.4 mg/dL (1.6-2.6); Phosphorous 2.4 mg/dL (2.7-4.5)
[2019-11-13] MEDS ORDERED: Naloxone 0.4 MG/ML INJ IVP PRN (22:33)
[2019-11-13 22:42] LABS: Amphetamine Screen,Urine Negative ng/mL (Cutoff=1000); Barbiturate Screen,Urine Negative ng/mL (Cutoff=200); Benzodiazepines Screen,Urine Negative ng/mL (Cutoff=200); Cannabinoid Screen,Urine Negative ng/mL (Cutoff = 50); Cocaine Screen,Urine Negative ng/mL (Cutoff= 300); Opiate Screen,Urine Negative ng/mL (Cutoff=300); Phencyclidine Screen,Urine Negative ng/mL (Cutoff=25)
[2019-11-14] MEDS: Acetaminophen 325 MG TABLET PO PRN ×4 (00:30→20:22)
[2019-11-14] MEDS ORDERED: 0.9 % Sodium Chloride 1,000 ML IVC ONE (04:35)
[2019-11-14] MEDS ORDERED: *HR* Enoxaparin 40 MG/0.4 ML SYRINGE SQ SCH (06:00)
[2019-11-14] MEDS ORDERED: cefTRIAXone 1,000 MG in Water for inj. (sterile) 10 ML IVP SCH (08:00)
[2019-11-14] MEDS: Nicotine 14 MG PATCH.TD24 TD SCH (08:02)
[2019-11-14 09:59] LABS: Basophils % 0.2 %; Eosinophils # 0.1 K/mcL (0.0-0.6); Eosinophils % 0.4 %; Hematocrit 31.6 % (35.3-44.9); Immature Granulocytes % 2.1 % (0-4); Lymphocytes # 0.9 K/mcL (0.6-4.6); Lymphocytes % 4.4 %; Mean Corpuscular HGB Conc 32.9 g/dL (31.6-35.5); Mean Corpuscular Hemoglobin 29.1 pg (28.0-33.3); Mean Corpuscular Volume 88.3 fL (83.0-100.0); Monocytes # 1.4 K/mcL (0.0-1.3); Monocytes % 6.6 %; Neutrophils # 17.8 K/mcL (1.6-8.9); Platelet Count 284 K/mcL (140-400); Red Blood Count 3.58 M/mcL (3.82-4.97); Segmented Neutrophils % 86.3 %; White Blood Count 20.7 K/mcL (4.3-11.1)
[2019-11-14 10:00] LABS: INR 1.1; Prothrombin Time 12.3 Seconds (9.4-12.1)
[2019-11-14 10:03] LABS: Activated Partial Thrombo Time 30.6 Seconds (26.0-36.0)
[2019-11-14 10:15] LABS: Magnesium 1.9 mg/dL (1.6-2.6); Phosphorous 1.9 mg/dL (2.7-4.5)
[2019-11-14 10:16] LABS: BUN/Creatinine Ratio 8 (6-26); Blood Urea Nitrogen 4 mg/dL (6-20); Calcium 7.6 mg/dL (8.6-10.3); Carbon Dioxide 19 mEq/L (23-29); Chloride 109 mEq/L (98-107); Glucose 119 mg/dL (70-105); Osmolality,Calculated 278 (280-300); Potassium 3.4 mEq/L (3.5-5.1); Sodium 135 mEq/L (136-145); eGFR For African Americans > 60 (> 60); eGFR For Non-African Americans > 60 (> 60)
[2019-11-14 10:32] LABS: Hemoglobin 10.4 g/dL (11.5-15.4)
[2019-11-14 10:54] LABS: Hepatitis B Surface Antigen Nonreactive (Nonreactive)
[2019-11-14 11:23] LABS: Hepatitis B Core IgM Nonreactive (Nonreactive)
[2019-11-14 11:24] LABS: Hepatitis A Antibody IgM Nonreactive (Nonreactive)
[2019-11-14 14:35] LABS: Hepatitis C Virus Antibody Reactive (Nonreactive)
[2019-11-14] MEDS: 0.9 % Sodium Chloride 1,000 ML IVC SCH (16:00)
[2019-11-15 07:11] LABS: Basophils % 0.2 %; Eosinophils # 0.1 K/mcL (0.0-0.6); Eosinophils % 0.6 %; Hemoglobin 9.8 g/dL (11.5-15.4); Lymphocytes # 1.4 K/mcL (0.6-4.6); Lymphocytes % 7.7 %; Mean Corpuscular HGB Conc 32.7 g/dL (31.6-35.5); Mean Corpuscular Hemoglobin 29.3 pg (28.0-33.3); Mean Corpuscular Volume 89.8 fL (83.0-100.0); Mean Platelet Volume 9.1 fL (9.4-12.4); Monocytes # 1.8 K/mcL (0.0-1.3); Monocytes % 10.1 %; Neutrophils # 14.6 K/mcL (1.6-8.9); Platelet Count 303 K/mcL (140-400); Red Blood Count 3.34 M/mcL (3.82-4.97); Red Cell Distribution Width 13.2 % (11.5-14.5); Segmented Neutrophils % 80.4 %; White Blood Count 18.2 K/mcL (4.3-11.1)
[2019-11-15] MEDS ORDERED: cefTRIAXone 2,000 MG in Water for inj. (sterile) 10 ML IVP SCH (07:42)
[2019-11-15] MEDS: cefTRIAXone 2,000 MG in Water for inj. (sterile) 20 ML IVP SCH (08:33)
[2019-11-15] MEDS: 0.9 % Sodium Chloride 1,000 ML IVC SCH ×2 (08:33→20:09)
[2019-11-15] MEDS: Nicotine 14 MG PATCH.TD24 TD SCH (08:33)
[2019-11-15] MEDS: Acetaminophen 325 MG TABLET PO PRN ×2 (08:41→20:08)
[2019-11-15 08:47] LABS: BUN/Creatinine Ratio 11 (6-26); Blood Urea Nitrogen 5 mg/dL (6-20); Calcium 8.6 mg/dL (8.6-10.3); Carbon Dioxide 22 mEq/L (23-29); Chloride 109 mEq/L (98-107); Glucose 99 mg/dL (70-105); Magnesium 1.4 mg/dL (1.6-2.6); Osmolality,Calculated 277 (280-300); Potassium 3.4 mEq/L (3.5-5.1); Sodium 135 mEq/L (136-145); eGFR For African Americans > 60 (> 60); eGFR For Non-African Americans > 60 (> 60)
[2019-11-15] MEDS ORDERED: Potassium Phosphate 44 MEQ in 0.9 % Sodium Chloride 250 ML IVPB ONE (14:00)
[2019-11-16 06:10] LABS: Basophils # 0.1 K/mcL (0.0-0.2); Basophils % 0.5 %; Eosinophils # 0.2 K/mcL (0.0-0.6); Eosinophils % 1.4 %; Hematocrit 29.7 % (35.3-44.9); Hemoglobin 9.9 g/dL (11.5-15.4); Lymphocytes # 1.8 K/mcL (0.6-4.6); Lymphocytes % 16.2 %; Mean Corpuscular HGB Conc 33.3 g/dL (31.6-35.5); Mean Corpuscular Hemoglobin 29.6 pg (28.0-33.3); Mean Corpuscular Volume 88.7 fL (83.0-100.0); Mean Platelet Volume 8.9 fL (9.4-12.4); Monocytes # 1.1 K/mcL (0.0-1.3); Monocytes % 10.3 %; Neutrophils # 7.8 K/mcL (1.6-8.9); Platelet Count 333 K/mcL (140-400); Red Blood Count 3.35 M/mcL (3.82-4.97); Red Cell Distribution Width 13.3 % (11.5-14.5); Segmented Neutrophils % 70.6 %; White Blood Count 11.1 K/mcL (4.3-11.1)
[2019-11-16 06:33] LABS: BUN/Creatinine Ratio 11 (6-26); Blood Urea Nitrogen 5 mg/dL (6-20); Calcium 8.2 mg/dL (8.6-10.3); Carbon Dioxide 20 mEq/L (23-29); Chloride 106 mEq/L (98-107); Glucose 89 mg/dL (70-105); Magnesium 1.2 mg/dL (1.6-2.6); Osmolality,Calculated 277 (280-300); Phosphorous 3.9 mg/dL (2.7-4.5); Potassium 3.7 mEq/L (3.5-5.1); Sodium 135 mEq/L (136-145); eGFR For African Americans > 60 (> 60); eGFR For Non-African Americans > 60 (> 60)
[2019-11-16] MEDS: cefTRIAXone 2,000 MG in Water for inj. (sterile) 20 ML IVP SCH (08:38)
[2019-11-16] MEDS: Nicotine 14 MG PATCH.TD24 TD SCH (08:39)
[2019-11-16] MEDS: 0.9 % Sodium Chloride 1,000 ML IVC SCH (08:39)
[2019-11-16 10:27] VITALS: BP 108/69
== END 2019-11-16 11:13 | disposition home or self-care (01) ==
LOC: 3BNU 16:11 → EMEROOARM 16:11 → SUATTDRO 21:50 → 3BNU 22:29 → 3ANU 11-14 15:37
PROVIDERS: ADMIT Internal Medicine; ATTEND Internal Medicine

== ENCOUNTER 2020-03-01 18:54 | Observation (INO) ==
[2020-03-01] MEDS ORDERED: FLU Vac QV 20-21 (6Month+)/PF 0.5 ML SYRINGE IM ONE (19:17)
[2020-03-01 19:53] LABS: Bilirubin,Urine Negative (Negative); Blood,Urine Negative (Negative); Clarity,Urine Clear (Clear); Color,Urine Light-Yellow (Yellow); Glucose,Urine (UA) Normal (Normal); Ketones,Urine Negative (Negative); Leukocyte Esterase,Urine Negative (Negative); Nitrite,Urine Negative (Negative); PH,Urine 6.5 pH Units (5.0-8.0); Protein,Urine Negative (Neg-Trace); Urobilinogen,Urine Normal (Normal)
[2020-03-01 19:55] LABS: Basophils # 0.1 K/mcL (0.0-0.2); Basophils % 1.1 %; Eosinophils # 0.3 K/mcL (0.0-0.6); Eosinophils % 2.2 %; Hematocrit 30.3 % (35.3-44.9); Hemoglobin 9.9 g/dL (11.5-15.4); Immature Granulocytes % 4.4 % (0-4); Lymphocytes % 23.2 %; Mean Corpuscular HGB Conc 32.7 g/dL (31.6-35.5); Mean Corpuscular Hemoglobin 29.8 pg (28.0-33.3); Mean Corpuscular Volume 91.3 fL (83.0-100.0); Mean Platelet Volume 8.5 fL (9.4-12.4); Monocytes % 7.7 %; Neutrophils # 7.8 K/mcL (1.6-8.9); Platelet Count 464 K/mcL (140-400); Red Blood Count 3.32 M/mcL (3.82-4.97); Red Cell Distribution Width 13.2 % (11.5-14.5); Segmented Neutrophils % 61.4 %; White Blood Count 12.7 K/mcL (4.3-11.1)
[2020-03-01 20:04] LABS: Amphetamine Screen,Urine Negative ng/mL (Cutoff=1000); Barbiturate Screen,Urine Negative ng/mL (Cutoff=200); Benzodiazepines Screen,Urine Negative ng/mL (Cutoff=200); Cannabinoid Screen,Urine Negative ng/mL (Cutoff = 50); Cocaine Screen,Urine Negative ng/mL (Cutoff= 300); Opiate Screen,Urine Negative ng/mL (Cutoff=300); Phencyclidine Screen,Urine Negative ng/mL (Cutoff=25)
[2020-03-01 20:42] LABS: Rubella IgG Antibody POSITIVE (POSITIVE); Varicella Zoster IgG Antibody Positive
[2020-03-01 20:59] LABS: Candida DNA Not Detected (Not Detect); Gardnerella DNA Not Detected (Not Detect); Trichomonas DNA Not Detected (Not Detect)
[2020-03-01 21:14] LABS: Hepatitis B Surface Antigen Nonreactive (Nonreactive)
[2020-03-01 21:42] LABS: HIV-1&2 Antibody & p24 Ag Nonreactive (Nonreactive)
[2020-03-04 09:04] LABS: HCV Quant Interpretation DETECTED (Not Detected); HCV Quant Log 5.54 log IU/mL
== END 2020-03-01 21:31 | disposition home or self-care (01) ==
LOC: 1NENULAB
PROVIDERS: ADMIT Obstetrics & Gynecology; ATTEND Obstetrics & Gynecology

== ENCOUNTER 2020-05-31 08:00 | Inpatient (IN) ==
[2020-05-31] MEDS ORDERED: Naloxone 0.4 MG/ML INJ IVP PRN (08:12)
[2020-05-31] MEDS ORDERED: miSOPROStoL 25 MCG TABLET PO PRN (08:12)
[2020-05-31] MEDS ORDERED: *HR* FentaNYL (PF) 100 MCG/2 ML VIAL IVP PRN (08:12)
[2020-05-31] MEDS ORDERED: Ondansetron 4 MG/2 ML VIAL IVP PRN (08:12)
[2020-05-31] MEDS ORDERED: Metoclopramide 10 MG/2 ML VIAL IVP PRN (08:12)
[2020-05-31] MEDS ORDERED: Famotidine 20 MG/2 ML VIAL IVP PRN (08:12)
[2020-05-31] MEDS ORDERED: Lidocaine 1% 20 ML MDV INFILT PRN (08:12)
[2020-05-31] MEDS ORDERED: Azithromycin 500 MG in 0.9 % Sodium Chloride 250 ML IVPB PRN (08:12)
[2020-05-31] MEDS ORDERED: Oxytocin 20 units/ LR 1000 mL 20 UNIT/1,000 ML BAG IVC SCH (08:15)
[2020-05-31] MEDS: Ringers Solution, Lactated 1,000 ML IVC SCH ×2 (09:20→11:21)
[2020-05-31 09:25] LABS: Basophils # 0.1 K/mcL (0.0-0.2); Basophils % 0.9 %; Eosinophils # 0.3 K/mcL (0.0-0.6); Eosinophils % 2.1 %; Hematocrit 34.9 % (35.3-44.9); Hemoglobin 11.4 g/dL (11.5-15.4); Immature Granulocytes % 2.6 % (0-4); Lymphocytes # 2.1 K/mcL (0.6-4.6); Lymphocytes % 16.4 %; Mean Corpuscular HGB Conc 32.7 g/dL (31.6-35.5); Mean Corpuscular Hemoglobin 30.1 pg (28.0-33.3); Mean Corpuscular Volume 92.1 fL (83.0-100.0); Mean Platelet Volume 8.9 fL (9.4-12.4); Monocytes % 7.7 %; Neutrophils # 8.8 K/mcL (1.6-8.9); Platelet Count 405 K/mcL (140-400); Red Blood Count 3.79 M/mcL (3.82-4.97); Red Cell Distribution Width 14.1 % (11.5-14.5); Segmented Neutrophils % 70.3 %; White Blood Count 12.6 K/mcL (4.3-11.1)
[2020-05-31 09:27] LABS: Amphetamine Screen,Urine Negative ng/mL (Cutoff=1000); Barbiturate Screen,Urine Negative ng/mL (Cutoff=200); Benzodiazepines Screen,Urine Negative ng/mL (Cutoff=200); Cannabinoid Screen,Urine Negative ng/mL (Cutoff = 50); Cocaine Screen,Urine Negative ng/mL (Cutoff= 300); Opiate Screen,Urine Negative ng/mL (Cutoff=300); Phencyclidine Screen,Urine Negative ng/mL (Cutoff=25)
[2020-05-31 10:11] LABS: Adenovirus Not Detected (Not Detect); Bordetella Pertussis Not Detected (Not Detect); Chlamydophila pneumoniae Not Detected (Not Detect); Coronavirus 229E Not Detected (Not Detect); Coronavirus HKU1 Not Detected (Not Detect); Coronavirus NL63 Not Detected (Not Detect); Coronavirus OC43 Not Detected (Not Detect); Human Metapneumovirus Not Detected (Not Detect); Human Rhinovirus/Enterovirus Not Detected (Not Detect); Influenza A Subtype 2009 H1 Not Detected (Not Detect); Influenza B Not Detected (Not Detect); Mycoplasma pneumoniae Not Detected (Not Detect); Parainfluenza Virus 1 Not Detected (Not Detect); Parainfluenza Virus 2 Not Detected (Not Detect); Parainfluenza Virus 3 Not Detected (Not Detect); Parainfluenza Virus 4 Not Detected (Not Detect); Respiratory Syncytial Virus Not Detected (Not Detect); SARS-CoV-2 Not Detected (Not Detect)
[2020-05-31] MEDS ORDERED: EPHEDrine 50 MG/ML VIAL IVP PRN (10:51)
[2020-05-31] MEDS ORDERED: Bupivacaine-MPF 0.25% 10 ML VIAL EP ONE (10:51)
[2020-05-31] MEDS ORDERED: *HR* FentaNYL (PF) 100 MCG/2 ML VIAL EP ONE (10:51)
[2020-05-31] MEDS ORDERED: Epidural Premix (fent/bupiv) 110 ML EP ONE (10:57)
[2020-05-31] MEDS: Epidural Premix (fent/bupiv) 110 ML EP SCH ×3 (11:20→23:11)
[2020-05-31] MEDS ORDERED: AZITHROMYCIN IVPB ONE (11:51)
[2020-05-31] MEDS ORDERED: SODIUM CHLORIDE 0.9% IVPB ONE (11:51)
[2020-05-31] MEDS: Azithromycin 250 MG TABLET PO ONE ×2 (12:31→12:55)
[2020-05-31] MEDS: MetroNIDAZOLE 500 MG/100 ML 500 MG/100 ML BAG IVPB SCH ×2 (12:34→18:11)
[2020-06-01] MEDS: MetroNIDAZOLE 500 MG/100 ML 500 MG/100 ML BAG IVPB SCH (00:08)
[2020-06-01] MEDS ORDERED: Lanolin 7 G OINT...G. TP PRN (06:10)
[2020-06-01] MEDS ORDERED: Oxytocin 20 units/ LR 1000 mL 20 UNIT/1,000 ML BAG IVC SCH (06:10)
[2020-06-01] MEDS ORDERED: Acetaminophen 325 MG TABLET PO PRN (06:10)
[2020-06-01] MEDS ORDERED: Benzocaine/Menthol 56 GM AEROSOL SPRAY TP PRN (06:10)
[2020-06-01] MEDS: Ibuprofen 600 MG TABLET PO PRN ×2 (08:41→21:05)
[2020-06-01] MEDS: Prenatal Vit/FA 1 EACH TABLET PO SCH (08:41)
[2020-06-01] MEDS: Nicotine 21 MG PATCH.TD24 TD SCH (15:11)
[2020-06-02] MEDS: Prenatal Vit/FA 1 EACH TABLET PO SCH (08:03)
[2020-06-02] MEDS: Nicotine 21 MG PATCH.TD24 TD SCH (08:03)
[2020-06-02] MEDS: Ibuprofen 600 MG TABLET PO PRN (08:03)
[2020-06-02 08:26] VITALS: BP 114/70
== END 2020-06-02 11:30 | disposition home or self-care (01) | DRG 560 ==
LOC: 1NENULAB 08:09 → 1NENUOBS 06-01 06:32
PROVIDERS: ADMIT Advanced Practice Midwife; ATTEND Advanced Practice Midwife

== ENCOUNTER 2020-11-04 10:42 | Inpatient (IN) ==
[2020-11-04] MEDS ORDERED: Isovue-370 500 ML BOTTLE IVP ONE (12:54)
[2020-11-04] MEDS ORDERED: 0.9 % Sodium Chloride 1,000 ML IVC ONE (13:10)
[2020-11-04 13:27] LABS: Hematocrit 39.3 % (35.3-44.9); Hemoglobin 12.6 g/dL (11.5-15.4); Mean Corpuscular HGB Conc 32.1 g/dL (31.6-35.5); Mean Corpuscular Hemoglobin 28.3 pg (28.0-33.3); Mean Corpuscular Volume 88.1 fL (83.0-100.0); Mean Platelet Volume 8.3 fL (9.4-12.4); Platelet Count 595 K/mcL (140-400); Red Blood Count 4.46 M/mcL (3.82-4.97); Red Cell Distribution Width 12.3 % (11.5-14.5); White Blood Count 19.4 K/mcL (4.3-11.1)
[2020-11-04 13:51] LABS: BUN/Creatinine Ratio 27 (6-26); Blood Urea Nitrogen 20 mg/dL (6-20); C-Reactive Protein 47 mg/L (Less than 10); Calcium 9.1 mg/dL (8.6-10.3); Carbon Dioxide 25 mEq/L (23-29); Chloride 107 mEq/L (98-107); Glucose 87 mg/dL (70-105); Osmolality,Calculated 292 (280-300); Potassium 4.3 mEq/L (3.5-5.1); Sodium 140 mEq/L (136-145); eGFR For African Americans > 60 (> 60); eGFR For Non-African Americans > 60 (> 60)
[2020-11-04] MEDS ORDERED: Ketorolac 15 MG/ML VIAL IVP ONE (13:58)
[2020-11-04 14:01] LABS: Lymphocytes # 5.2 K/mcL (0.6-4.6); Monocytes # 1.4 K/mcL (0.0-1.3); Neutrophils # 12.6 K/mcL (1.6-8.9); Platelet Estimate Increased (Normal); Reactive Lymphocytes Present (Not Present)
[2020-11-04] MEDS ORDERED: Piperacillin/Tazobactam 3.375 GM in 0.9 % Sodium Chloride Mini Bag 100 ML IVPB ONE (15:45)
[2020-11-04] MEDS ORDERED: Naloxone 0.4 MG/ML INJ IVP PRN (15:49)
[2020-11-04] MEDS ORDERED: Acetaminophen 325 MG TABLET PO PRN (15:49)
[2020-11-04] MEDS ORDERED: Ondansetron 4 MG/2 ML VIAL IVP PRN (15:49)
[2020-11-04] MEDS ORDERED: 0.9 % Sodium Chloride 1,000 ML IVC SCH (17:30)
[2020-11-04] MEDS ORDERED: Acetaminophen IV 1,000 MG/100 ML BAG IVPB ONE (18:05)
[2020-11-04] MEDS: Acetaminophen 325 MG TABLET PO PRN (18:12)
[2020-11-04] MEDS ORDERED: Famotidine 20 MG/2 ML VIAL IVP ONE (20:03)
[2020-11-04] MEDS: *HR* Heparin 5,000 UNIT/ML VIAL SQ SCH (20:13)
[2020-11-04] MEDS ORDERED: DAPTOmycin 400 MG in 0.9 % Sodium Chloride 100 ML IVPB SCH (21:00)
[2020-11-04] MEDS ORDERED: Ibuprofen 800 MG TABLET PO ONE (21:52)
[2020-11-04] MEDS: Ertapenem 1,000 MG in 0.9 % Sodium Chloride Mini Bag 100 ML IVPB SCH (23:52)
[2020-11-05] MEDS ORDERED: Piperacillin/Tazobactam 3.375 GM in 0.9 % Sodium Chloride Mini Bag 100 ML IVPB SCH
[2020-11-05] MEDS: *HR* Heparin 5,000 UNIT/ML VIAL SQ SCH (05:26)
[2020-11-05] MEDS: Acetaminophen 325 MG TABLET PO PRN (05:26)
[2020-11-05] MEDS: Ertapenem 1,000 MG in 0.9 % Sodium Chloride Mini Bag 100 ML IVPB SCH (08:10)
[2020-11-05] MEDS ORDERED: Nicotine 14 MG PATCH.TD24 TD SCH (09:00)
[2020-11-05] MEDS ORDERED: *HR* Midazolam HCl 2 MG/2 ML VIAL ONE (12:10)
[2020-11-05] MEDS ORDERED: *HR* Propofol 200 MG/20 ML VIAL IVP ONE (12:10)
[2020-11-05] MEDS ORDERED: Ondansetron 4 MG/2 ML VIAL ONE (12:11)
[2020-11-05] MEDS ORDERED: Lidocaine -MPF 2% 2 ML VIAL ONE (12:11)
[2020-11-05] MEDS ORDERED: Vancomycin 1,000 MG, 0.9 % Sodium Chloride 1,000 ML IR ONE ×2 (12:30→15:17)
[2020-11-05] MEDS ORDERED: *HR* FentaNYL (PF) 100 MCG/2 ML VIAL ONE (12:51)
[2020-11-05] MEDS ORDERED: *HR* HYDROMORPHONE 2 MG/ML VIAL ONE (12:56)
[2020-11-05] MEDS: *HR* HYDROmorphone PF 0.5 MG/0.5 ML SYRINGE IVP PRN ×4 (13:30→13:51)
[2020-11-05] MEDS ORDERED: Ketorolac 30 MG/ML VIAL IVP ONE (14:07)
[2020-11-05] MEDS ORDERED: Ringers Solution, Lactated 1,000 ML ONE (14:23)
[2020-11-05] MEDS ORDERED: Naloxone 0.4 MG/ML INJ IVP PRN (15:17)
[2020-11-05] MEDS ORDERED: Ondansetron 4 MG/2 ML VIAL IVP PRN (15:17)
[2020-11-05] MEDS ORDERED: Acetaminophen IV 1,000 MG/100 ML BAG IVPB ONE (15:17)
[2020-11-05] MEDS ORDERED: Cefepime HCl 2,000 MG in Water for inj. (sterile) 20 ML IVP SCH (16:00)
[2020-11-05 17:30] LABS: Basophils # 0.1 K/mcL (0.0-0.2); Basophils % 0.2 %; Eosinophils # 0.1 K/mcL (0.0-0.6); Eosinophils % 0.3 %; Hematocrit 38.1 % (35.3-44.9); Immature Granulocytes % 1.2 % (0-4); Lymphocytes # 1.2 K/mcL (0.6-4.6); Lymphocytes % 5.7 %; Mean Corpuscular HGB Conc 31.5 g/dL (31.6-35.5); Mean Corpuscular Hemoglobin 27.9 pg (28.0-33.3); Mean Corpuscular Volume 88.6 fL (83.0-100.0); Mean Platelet Volume 8.2 fL (9.4-12.4); Monocytes # 0.2 K/mcL (0.0-1.3); Monocytes % 0.7 %; Neutrophils # 18.7 K/mcL (1.6-8.9); Platelet Count 518 K/mcL (140-400); Red Cell Distribution Width 12.5 % (11.5-14.5); Segmented Neutrophils % 91.9 %; White Blood Count 20.4 K/mcL (4.3-11.1)
[2020-11-05 17:43] LABS: Prothrombin Time 11.7 Seconds (9.4-12.1)
[2020-11-05 17:49] LABS: BUN/Creatinine Ratio 27 (6-26); Blood Urea Nitrogen 15 mg/dL (6-20); Calcium 8.4 mg/dL (8.6-10.3); Carbon Dioxide 24 mEq/L (23-29); Chloride 104 mEq/L (98-107); Glucose 171 mg/dL (70-105); Magnesium 1.7 mg/dL (1.6-2.6); Osmolality,Calculated 279 (280-300); Potassium 4.4 mEq/L (3.5-5.1); Sodium 132 mEq/L (136-145); eGFR For African Americans > 60 (> 60); eGFR For Non-African Americans > 60 (> 60)
[2020-11-05] MEDS: Cefepime HCl 2,000 MG in Water for inj. (sterile) 20 ML IVP SCH (19:27)
[2020-11-05] MEDS: DAPTOmycin 400 MG in 0.9 % Sodium Chloride 100 ML IVPB SCH (22:13)
[2020-11-06] MEDS: Cefepime HCl 2,000 MG in Water for inj. (sterile) 20 ML IVP SCH ×3 (01:18→16:16)
[2020-11-06] MEDS: Acetaminophen 325 MG TABLET PO PRN ×3 (01:26→18:21)
[2020-11-06 05:33] LABS: Hematocrit 35.6 % (35.3-44.9); Hemoglobin 11.6 g/dL (11.5-15.4); Mean Corpuscular HGB Conc 32.6 g/dL (31.6-35.5); Mean Corpuscular Hemoglobin 28.3 pg (28.0-33.3); Mean Corpuscular Volume 86.8 fL (83.0-100.0); Mean Platelet Volume 8.3 fL (9.4-12.4); Platelet Count 554 K/mcL (140-400); Red Cell Distribution Width 12.2 % (11.5-14.5); White Blood Count 15.5 K/mcL (4.3-11.1)
[2020-11-06 05:53] LABS: BUN/Creatinine Ratio 33 (6-26); Blood Urea Nitrogen 14 mg/dL (6-20); Calcium 8.6 mg/dL (8.6-10.3); Carbon Dioxide 25 mEq/L (23-29); Chloride 104 mEq/L (98-107); Glucose 156 mg/dL (70-105); Osmolality,Calculated 286 (280-300); Potassium 4.3 mEq/L (3.5-5.1); Sodium 136 mEq/L (136-145); eGFR For African Americans > 60 (> 60); eGFR For Non-African Americans > 60 (> 60)
[2020-11-06] MEDS: Nicotine 14 MG PATCH.TD24 TD SCH (07:52)
[2020-11-06] MEDS: Ketorolac 30 MG/ML VIAL IVP PRN ×2 (11:13→20:15)
[2020-11-06] MEDS: Gabapentin 300 MG CAPSULE PO SCH ×2 (16:17→20:15)
[2020-11-06] MEDS: DAPTOmycin 400 MG in 0.9 % Sodium Chloride 100 ML IVPB SCH (20:15)
[2020-11-07] MEDS: Cefepime HCl 2,000 MG in Water for inj. (sterile) 20 ML IVP SCH ×4 (00:20→23:41)
[2020-11-07] MEDS: Ketorolac 30 MG/ML VIAL IVP PRN ×2 (05:40→17:06)
[2020-11-07 06:21] LABS: Hematocrit 34.8 % (35.3-44.9); Hemoglobin 11.3 g/dL (11.5-15.4); Mean Corpuscular HGB Conc 32.5 g/dL (31.6-35.5); Mean Corpuscular Hemoglobin 28.9 pg (28.0-33.3); Mean Platelet Volume 8.4 fL (9.4-12.4); Platelet Count 503 K/mcL (140-400); Red Blood Count 3.91 M/mcL (3.82-4.97); Red Cell Distribution Width 12.6 % (11.5-14.5)
[2020-11-07 06:42] LABS: BUN/Creatinine Ratio 33 (6-26); Blood Urea Nitrogen 19 mg/dL (6-20); Calcium 8.2 mg/dL (8.6-10.3); Carbon Dioxide 26 mEq/L (23-29); Chloride 109 mEq/L (98-107); Glucose 97 mg/dL (70-105); Osmolality,Calculated 290 (280-300); Potassium 4.1 mEq/L (3.5-5.1); Sodium 139 mEq/L (136-145); eGFR For African Americans > 60 (> 60); eGFR For Non-African Americans > 60 (> 60)
[2020-11-07] MEDS: Gabapentin 300 MG CAPSULE PO SCH ×3 (09:11→20:09)
[2020-11-07] MEDS: Nicotine 14 MG PATCH.TD24 TD SCH (09:11)
[2020-11-07] MEDS: Acetaminophen 325 MG TABLET PO PRN (17:56)
[2020-11-07] MEDS: DAPTOmycin 400 MG in 0.9 % Sodium Chloride 100 ML IVPB SCH (20:09)
[2020-11-08] MEDS: Acetaminophen 325 MG TABLET PO PRN (03:47)
[2020-11-08 07:06] VITALS: BP 102/64; PULSE 75; TEMP 97.6; O2SAT 98
[2020-11-08 09:04] LABS: Uric Acid 4.4 mg/dL (2.3-7.6)
[2020-11-08] MEDS: Cefepime HCl 2,000 MG in Water for inj. (sterile) 20 ML IVP SCH (10:21)
[2020-11-08] MEDS: Nicotine 14 MG PATCH.TD24 TD SCH (10:21)
[2020-11-08] MEDS: Ketorolac 30 MG/ML VIAL IVP PRN (10:22)
[2020-11-08] MEDS: Gabapentin 300 MG CAPSULE PO SCH (10:23)
== END 2020-11-08 11:13 | disposition left against medical advice (07) | DRG 710 ==
LOC: EMEROOARM 10:42 → 3NENU 16:38 → SUATTDRO 16:38 → 3NENU 17:13
PROVIDERS: ADMIT Pharmacist; ATTEND Internal Medicine